=== PATIENT | female | born 1970 | race Caucasian/White ===

== ENCOUNTER 2018-02-01 11:10 | Emergency (ER) | payer BC ==
--- OUTSIDE RECORDS SUMMARY | 2018-02-01 11:24 | XMS REPORT | Clinical Summary ---
:1970 Author Organization [facility] Address [address] [place] [address] Care Team Providers Name Role Phone Shanti De Anda MD Primary Care Provider Allergies Active Allergy Reactions Severity Noted Date Comments Hydromorphone Itching Morphine Itching Sulfa (Sulfonamide Antibiotics) Itching 04/08/2013 Sulfamethoxazole-Trimethoprim Itching Medications Medication Sig Dispensed Refills Start Date End Date Status citalopram (CeleXA) 20 0 05/20/2013 Active MG tablet ARIPiprazole (ABILIFY) 0 12/20/2015 Active 5 MG tablet venlafaxine XR 0 12/20/2015 Active (EFFEXOR-XR) 75 MG 24 hr capsule clonAZEPAM (KlonoPIN) 0 12/20/2015 Active 0.5 MG tablet gabapentin (NEURONTIN) TAKE ONE (1) 0 02/08/2016 Active 300 mg capsule CAPSULE(S) BY MOUTH EVERY NIGHT BEFORE BEDTIME. gabapentin (NEURONTIN) 0 02/25/2016 Active 100 mg capsule tamoxifen (NOLVADEX) 20 0 02/24/2016 Active MG chemo tablet topiramate (TOPAMAX) 0 02/05/2016 Active 100 MG tablet traZODone (DESYREL) 100 0 12/20/2015 Active MG tablet traMADol (ULTRAM) 50 mg 0 02/05/2009 Active tablet esomeprazole (NexIUM) 0 11/20/2015 Active 20 MG capsule b complex vitamins 0 02/06/2016 Active capsule calcium citrate 250 mg 0 04/19/2012 Active calcium tablet multivitamin 0 02/06/2012 Active (THERAGRAN) tablet diclofenac potassium 0 02/05/2011 Active (ZIPSOR) 25 mg capsule cholecalciferol, 0 04/19/2012 Active vitamin D3, (VITAMIN D3) 5,000 unit tablet cyanocobalamin, vitamin 0 04/09/2012 Active B-12, (VITAMIN B-12) 2,500 mcg tablet, sublingual sennosides-docusate 0 11/06/2015 Active sodium (SENNA-S) 8.6-50 mg per tablet melatonin 5 mg tablet 0 05/20/2013 Active docusate sodium 0 11/06/2015 Active (COLACE) 100 MG capsule NUCYNTA ER 50 mg 12 hr TAKE ONE (1) 0 08/25/2016 Active tablet TABLET(S) BY MOUTH EVERY TWELVE HOURS NEEDED FOR PAIN. Active Problems Not on file Social History Tobacco Use Types Packs/Day Years Used Date Never Smoker Alcohol Use Drinks/Week oz/Week Comments No Sex Assigned at Date Recorded Not on file Job Start Date Occupation Industry Not on file Not on file Not on file Travel History Travel Start Travel End No recent travel history available. Last Filed Vital Signs Not on file Plan of Treatment Health Maintenance Due Date Last Done Comments CERVICAL CANCER SCREENING 1990 INFLUENZA VACCINE 09/05/2017 Results Not on fileafter 01/31/2017 Insurance Payer Benefit Plan / Group Subscriber ID Type Phone Address [facility] xxxxxxxxxxxx PPO Advance Directives Patient has advance care planning documents on file. For more information, please contact:[place] [address]
--- OUTSIDE RECORDS SUMMARY | 2018-02-01 11:25 | XMS REPORT | Clinical Summary ---
:[address] [facility] Address [address] [place] [address] Care Team Providers Name Role Phone Shanti De Anda Primary Care Provider Unavailable Allergies Active Allergy Reactions Severity Noted Date Comments Hydromorphone Itching Morphine Itching Sulfa (Sulfonamide Antibiotics) Itching 04/08/2013 Medications Medication Sig Dispensed Refills Start Date End Date Status citalopram (CELEXA) Take 20 mg by 0 Active 20 MG tablet mouth nightly. ARIPiprazole Take 5 mg by 0 Active (ABILIFY) 5 MG mouth daily. tablet multivitamin Take 1 0 Active capsule capsule by mouth daily. BIOTIN ORAL Take 1,000 0 Active Units by mouth daily. CALCIUM CARBONATE Take by mouth 0 Active (CALCIUM 500 ORAL) 2 (two) times daily. topiramate Take 200 mg 0 Active (TOPAMAX) 200 MG by mouth tablet daily. venlafaxine Take 75 mg by 0 Active (EFFEXOR-XR) 75 MG mouth daily. 24 hr capsule gabapentin Take 400 mg 0 Active (NEURONTIN) 400 MG by mouth capsule nightly. tamoxifen Take 20 mg by 0 Active (NOLVADEX) 20 MG mouth daily. tablet omeprazole Take 1 30 capsule 11 02/23/2017 02/23/2018 Active (PRILOSEC) 40 MG capsule (40 capsule mg total) by mouth daily. sucralfate Take 1 tablet 30 tablet 0 02/23/2017 02/23/2018 Active (CARAFATE) 1 gram (1 g total) tablet by mouth 4 (four) times daily Crush tablets. tapentadol (NUCYNTA Take 50 mg by 0 Active ER) 50 mg Tb12 mouth every 12 (twelve) hours. buPROPion Take 300 mg 0 02/22/2017 Discontinued (WELLBUTRIN XL) 300 by mouth MG 24 hr tablet daily. levomefolate Take by 0 02/22/2017 Discontinued calcium 7.5 mg Tab mouth. omeprazole Take 20 mg by 0 03/21/2017 Discontinued (PRILOSEC) 20 MG mouth daily. capsule diclofenac (ZIPSOR) Take 25 mg by 0 02/22/2017 Discontinued 25 mg capsule mouth 2 (two) times daily. CALCIUM CITRATE Take 5,000 0 02/22/2017 Discontinued ORAL Units by mouth 2 (two) times daily. polyethylene glycol Take 17 g by 0 03/21/2017 Discontinued (GLYCOLAX) 17 gram mouth daily. packet traMADol (ULTRAM) Take 50 mg by 0 03/21/2017 Discontinued 50 mg tablet mouth 2 (two) times daily as needed. lansoprazole Take 15 mg by 0 03/21/2017 Discontinued (PREVACID) 15 MG mouth daily. capsule Active Problems Not on file Encounters Date Type Specialty Care Team Description 12/14/2017 Anesthesia Event Gastroenterology Newton Brown MD 12/14/2017 Surgery Gastroenterology [facility], [facility] UPPER ENDOSCOPY [facility] 12/14/2017 Hospital Encounter Gastroenterology [facility], [facility] 12/04/2017 Hospital Encounter Pre-Admission Testing Resource, [facility] Phone 03/21/2017 Surgery Gastroenterology [facility], [facility] UPPER ENDOSCOPY [facility] 03/21/2017 Anesthesia Event Gastroenterology Arthur Skaggs MD 03/21/2017 Hospital Encounter Gastroenterology [facility], [facility] 03/17/2017 Hospital Encounter Pre-Admission Testing Resource, [facility] Phone 02/23/2017 Anesthesia Event Gastroenterology Mary Villalta MD 02/23/2017 Surgery Gastroenterology [facility], [facility] UPPER ENDOSCOPY [facility] 02/23/2017 Hospital Encounter Gastroenterology [facility], [facility] 02/22/2017 Hospital Encounter Pre-Admission Testing [facility] Resource, [employer] Preadmit Phone after 01/31/2017 Social History Tobacco Use Types Packs/Day Years Used Date Never Smoker Smokeless Tobacco: Never Used Alcohol Use Drinks/Week oz/Week Comments No Sex Assigned at Date Recorded Not on file Job Start Date Occupation Industry Not on file Not on file Not on file Travel History Travel Start Travel End No recent travel history available. 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 Pulse 50 12/14/2017 4:17 PM [employer] ARCH[employer] Temperature 36.2 C (97.1 F) 12/14/2017 4:17 PM V[employer]ICA ARCHITECT Respiratory Rate 16 12/14/2017 4:17 PM [employer]ICA ARCHITECT Oxygen Saturation 99% 12/14/2017 4:17 PM V[employer]ICA ARCHITECT Inhaled Oxygen Concentration - - Weight 66.4 kg (146 lb 4.8 oz) 12/14/2017 12:05 PM V[employer]ICA ARCHITECT Height 162.6 cm (5' 4") 12/14/2017 12:05 PM VERTICA ARCHITECT Body Mass Index 25.11 12/14/2017 12:05 PM V[employer]ICA ARCHITECT Plan of Treatment Not on file Procedures Procedure Name Priority Date/Time Associated Diagnosis Comments REPORT OF PROCEDURE - 12/14/2017 3:54 PM ENDOSCOPY URL [facility] UPPER ENDOSCOPY 12/14/2017 11:55 AM Chronic low back pain, [employer]CH[employer] unspecified back pain laterality, with sciatica presence unspecified Complications of bariatric procedures REPORT OF PROCEDURE - 03/21/2017 9:40 AM ENDOSCOPY URL [facility] UPPER ENDOSCOPY 03/21/2017 9:10 AM Other postprocedural [employer] complications and disorders of digestive system REPORT OF PROCEDURE - 02/23/2017 9:27 AM ENDOSCOPY URL [facility] UPPER ENDOSCOPY 02/23/2017 8:00 AM Complications of [employer] ARCHITECT bariatric procedures Overweight (BMI 25.0-29.9) after 01/31/2017 Results REPORT OF PROCEDURE - ENDOSCOPY URL (12/14/2017 3:54 PM VERTICA ARCHITECT) Narrative Performed At REPORT OF PROCEDURE - ENDOSCOPY URL (03/21/2017 9:40 AM VERTICA ARCHITECT) Narrative Performed At REPORT OF PROCEDURE - ENDOSCOPY URL (02/23/2017 9:27 AM [employer]ICA ARCHITECT) Narrative Performed At after 01/31/2017 Insurance Payer Benefit Plan / Subscriber ID Type Phone Address Group [employer]UE [employer]/BLUE [employer]BS PPO POS EPO xxxxxxxxxxxx PPO [phone] [address] [place] [address] [place] ([place]) [place] [address]
--- NOTE | 2018-02-01 12:22 | RAD REPORT ---
EXAM DESCRIPTION: CT - Stone Protocol - 02/01/2018 12:01 pm CLINICAL HISTORY: Abdominal pain. Right flank pain COMPARISON: 2012 TECHNIQUE: Computed axial tomography of the abdomen pelvis was obtained without oral or IV contrast. Lack of IV and oral contrast limits evaluation of solid organs, bowel, and vessels. Coronal reformat joseluis images were obtained and reviewed. All CT scans are performed using dose optimization technique as appropriate and may include automated exposure control or mA/KV adjustment according to patient size. FINDINGS: A 1 millimeter nonobstructing right renal calculus. Ureteral calculus is not noted. A blad jaja calculus is not seen. Hydronephrosis is not present. Postsurgical changes of a gastric bypass. Small hepatic cyst Spleen, pancreas and right adrenal gland appear grossly normal. Small left adrenal adenoma unchanged There is no evidence of diverticulitis. Moderate amount of stool is present within the colon IMPRESSION: 1 millimeter nonobstructing right renal calculus
[2018-02-01] MEDS ORDERED: KETOROLAC 30 MG/ML INJ ONE (12:40)
--- NOTE | 2018-02-01 12:41 | EDPHYS ---
Physician Documentation [facility] Name: Mary Jo Mcnally Age: 47 yrs Sex: Female : 1970 Arrival Date: 02/01/2018 Time: 11:13 Bed 25 Private MD: Shanti De Anda K ED Physician Yefri Thornton HPI: 02/01 12:37 This 47 yrs old Female presents to ER via Ambulatory with complaints of snw Possible Kidney Stone. 12:37 The patient presents with abdominal pain right lower quadrant. Onset: The snw symptoms/episode began/occurred gradually, today, then sudden onset of more severe pain at 0900 this am. The symptoms do not radiate. Associated signs and symptoms: none. Associated signs and symptoms: Pertinent negatives: nausea and vomiting, blood in stools, fever. The symptoms are described as sharp, stabbing. Severity of pain: At its worst the pain was moderate severe. The patient has not experienced similar symptoms in the past, but family has similar symptoms, spouse. It is unknown whether or not the patient has recently seen a physician. 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 aj Historical: - Allergies: 11:45 Morphine; aj 11:45 Sulfa (Sulfonamide Antibiotics); aj - Home Meds: 11:45 Abilify 5 mg Oral tab 1 tab once daily [Active]; Celexa 20 mg Oral tab 1 tab nightly aj [Active]; Effexor Oral 75 mg daily [Active]; gabapentin 400 mg oral cap daily [Active]; Nucynta ER 50 mg oral Tb12 1 tab every 12 hours [Active]; TIMOXIFEN 20 MG nightly [Active]; Prilosec 30 mg Oral cpDR 1 cap 2 times per day [Active]; Zipsor 25 mg oral cap 1 cap twice a day [Active]; Senokot S 3 TABS Oral daily [Active]; Colace 100 mg Oral cap every 6 hours [Active]; - PMHx: 11:45 CANCER - BREAST; constipation; Depression; GERD; aj - PSHx: 11:45 Gastric Bypass; BILTERAL BREAST REMOVAL WITH RECONSTRUCTION; BACK FUSION; aj Cholecystectomy; - Immunization history:: Adult Immunizations up to date. - Social history:: Smoking status: Patient/guardian denies using tobacco. - Ebola Screening: : Patient negative for fever greater than or equal to 101.5 degrees Fahrenheit, and additional compatible Ebola Virus Disease symptoms Patient denies exposure to infectious person Patient denies travel to an Ebola-affected area in the 21 days before illness onset No symptoms or risks identified at this time. ROS: 12:36 Constitutional: Negative for fever, chills, and weight loss, Eyes: Negative for injury, snw pain, redness, and discharge, ENT: Negative for injury, pain, and discharge, Neck: Negative for injury, pain, and swelling, Cardiovascular: Negative for chest pain, palpitations, and edema, Respiratory: Negative for shortness of breath, cough, wheezing, and pleuritic chest pain, Back: Negative for injury and pain, : Negative for injury, bleeding, discharge, and swelling, MS/Extremity: Negative for injury and deformity, Skin: Negative for injury, rash, and discoloration, Neuro: Negative for headache, weakness, numbness, tingling, and seizure, Psych: Negative for depression, anxiety, suicide ideation, homicidal ideation, and hallucinations. 12:36 Abdomen/GI: Positive for abdominal pain, of the right lower quadrant. Exam: 12:26 Constitutional: This is a well developed, well nourished patient who is awake, alert, snw and in no acute distress. Head/Face: Normocephalic, atraumatic. Eyes: Pupils equal round and reactive to light, extra-ocular motions intact. Lids and lashes normal. Conjunctiva and sclera are non-icteric and not injected. Cornea within normal limits. Periorbital areas with no swelling, redness, or edema. ENT: Nares patent. No nasal discharge, no septal abnormalities noted. Tympanic membranes are normal and external auditory canals are clear. Oropharynx with no redness, swelling, or masses, exudates, or evidence of obstruction, uvula midline. Mucous membranes moist. Neck: Trachea midline, no thyromegaly or masses palpated, and no cervical lymphadenopathy. Supple, full range of motion without nuchal rigidity, or vertebral point tenderness. No Meningismus. Chest/axilla: Normal chest wall appearance and motion. Nontender with no deformity. No lesions are appreciated. Cardiovascular: Regular rate and rhythm with a normal S1 and S2. No gallops, murmurs, or rubs. Normal PMI, no JVD. No pulse deficits. Respiratory: Lungs have equal breath sounds bilaterally, clear to auscultation and percussion. No rales, rhonchi or wheezes noted. No increased work of breathing, no retractions or nasal flaring. Abdomen/GI: Soft, non-tender, with normal bowel sounds. No distension or tympany. No guarding or rebound. No evidence of tenderness throughout. Back: No spinal tenderness. No costovertebral tenderness. Full range of motion. Skin: Warm, dry with normal turgor. Normal color with no rashes, no lesions, and no evidence of cellulitis. MS/ Extremity: Pulses equal, no cyanosis. Neurovascular intact. Full, normal range of motion. Neuro: Awake and alert, GCS 15, oriented to person, place, time, and situation. Cranial nerves II-XII grossly intact. Motor strength 5/5 in all extremities. Sensory grossly intact. Cerebellar exam normal. Normal gait. Psych: Awake, alert, with orientation to person, place and time. Behavior, mood, and affect are within normal limits. Vital Signs: 11:45 BP 115 / 81; Pulse 78; Resp 19; Temp 97.8; Pulse Ox 100% on R/A; Weight 63.96 kg; aj Height 5 ft. 4 in. (162.56 cm); 11:45 Body Mass Index 24.20 (63.96 kg, 162.56 cm) aj MDM: 12:34 Patient medically screened. [facility] 12:40 Data reviewed: vital signs, nurses notes. Data interpreted: Pulse oximetry: on room air snw is 100 %. Interpretation: normal. Special discussion: Based on the patient's Hx, exam, and Dx evaluation, there is no indication for emergent surgery or inpatient Tx. It is understood by the patient/guardian that if the Sx's persist or worsen they need to return immediately for re-evaluation. Based on the history and exam findings, there is no indication for further emergent testing or inpatient evaluation. I discussed with the patient/guardian the need to see the primary care provider for further evaluation of the symptoms. 02/01 12:39 Order name: Urine Dipstick--Ancillary (enter results) 02/01 11:47 Order name: CT Stone Protocol; Complete Time: 12:25 Administered Medications: 12:35 Drug: TORadol 60 mg Route: IM; Site: right gluteus; ss 12:51 Follow up: Response: No adverse reaction; Medication administered at discharge. ss Disposition: 02/01/18 12:39 Discharged to Home. Impression: Ureteral stone, Lower abdominal pain, unspecified. - Condition is Stable. - Discharge Instructions: Abdominal Pain, Adult, Flank Pain, Adult, Kidney Stones, Dietary Guidelines to Help Prevent Kidney Stones. - Prescriptions for Tylenol- Codeine #3 300-30 mg Oral Tablet - take 2 tablets by ORAL route every 6 hours As needed; 18 tablet. - Medication Reconciliation Form, Thank You Letter, Antibiotic Education, Prescription Opioid Use form. - Follow up: Private Physician; When: 2 - 3 days; Reason: Recheck today's complaints, Continuance of care, Re-evaluation by your physician. Follow up: Emergency Department; When: As needed; Reason: Worsening of condition. Addendum: 02/05/2018 10:59 Co-signature as Attending Physician, Yefri Thornton MD I agree with the assessment and c morris plan of care. Signatures: Dispatcher [employer] Jenifer Silva, Yefri Rocha RN, MD MD cha Therrien, Shelly, MOLDED GOODS INSPECTOR TRIMMER-C MOLDED GOODS INSPECTOR TRIMMER-Csnw Roseanne Ruth RN RN ss Corrections: (The following items were deleted from the chart) 02/01 12:51 12:39 02/01/2018 12:39 Discharged to Home. Impression: Ureteral stone; Lower abdominal ss pain, unspecified. Condition is Stable. Forms are Medication Reconciliation Form, Thank You Letter, Antibiotic Education, Prescription Opioid Use. Follow up: Private Physician; When: 2 - 3 days; Reason: Recheck today's complaints, Continuance of care, Re-evaluation by your physician. Follow up: Emergency Department; When: As needed; Reason: Worsening of condition. snw
--- NOTE | 2018-02-01 12:41 | ER ---
Nurse's Notes [facility] Name: Mary Jo Mcnally Age: 47 yrs Sex: Female : 1970 Arrival Date: 02/01/2018 Time: 11:13 Bed 25 Private MD: Shanti De Anda K Diagnosis: Ureteral stone;Lower abdominal pain, unspecified Presentation: 02/01 11:42 Presenting complaint: Patient states: Right flank pain that started this AM at 0900. aj Denies blood in urine. Transition of care: patient was not received from another setting of care. Onset of symptoms was February 01, 2018. Risk Assessment: Do you want to hurt yourself or someone else? Patient reports no desire to harm self or others. Initial Sepsis Screen: Does the patient meet any 2 criteria? No. Patient's initial sepsis screen is negative. Does the patient have a suspected source of infection? No. Patient's initial sepsis screen is negative. Care prior to arrival: None. 11:42 Method Of Arrival: Ambulatory 11:42 Acuity: CHRIST 3 aj Triage Assessment: 11:45 General: Appears in no apparent distress. uncomfortable, Behavior is calm, cooperative, aj appropriate for age. Pain: Complains of pain in posterior aspect of right lateral abdomen and anterior aspect of right lateral abdomen. Neuro: Level of Consciousness is awake, alert, obeys commands, Oriented to person, place, time, situation, Appropriate for age. Respiratory: Airway is patent Respiratory effort is even, unlabored, Respiratory pattern is regular, symmetrical. GI: Abdomen is flat, non-distended. : Reports pain in right flank(s). Derm: Skin is intact, is healthy with good turgor, Skin is pink, warm \T\ dry. normal. 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 aj Historical: - Allergies: 11:45 Morphine; aj 11:45 Sulfa (Sulfonamide Antibiotics); aj - Home Meds: 11:45 Abilify 5 mg Oral tab 1 tab once daily [Active]; Celexa 20 mg Oral tab 1 tab nightly aj [Active]; Effexor Oral 75 mg daily [Active]; gabapentin 400 mg oral cap daily [Active]; Nucynta ER 50 mg oral Tb12 1 tab every 12 hours [Active]; TIMOXIFEN 20 MG nightly [Active]; Prilosec 30 mg Oral cpDR 1 cap 2 times per day [Active]; Zipsor 25 mg oral cap 1 cap twice a day [Active]; Senokot S 3 TABS Oral daily [Active]; Colace 100 mg Oral cap every 6 hours [Active]; - PMHx: 11:45 CANCER - BREAST; constipation; Depression; GERD; aj - PSHx: 11:45 Gastric Bypass; BILTERAL BREAST REMOVAL WITH RECONSTRUCTION; BACK FUSION; aj Cholecystectomy; - Immunization history:: Adult Immunizations up to date. - Social history:: Smoking status: Patient/guardian denies using tobacco. - Ebola Screening: : Patient negative for fever greater than or equal to 101.5 degrees Fahrenheit, and additional compatible Ebola Virus Disease symptoms Patient denies exposure to infectious person Patient denies travel to an Ebola-affected area in the 21 days before illness onset No symptoms or risks identified at this time. Screenin:20 Abuse screen: Denies threats or abuse. Denies injuries from another. Nutritional ss screening: No deficits noted. Tuberculosis screening: Never had TB. Fall Risk None identified. Assessment: 12:20 General: Appears uncomfortable, Behavior is calm, cooperative. Pain: Complains of pain ss in right lower quadrant and anterior aspect of right lateral abdomen and posterior aspect of right lateral abdomen Pain currently is 7 out of 10 on a pain scale. Quality of pain is described as aching, sharp, Is continuous. Neuro: Level of Consciousness is awake, alert, obeys commands, Oriented to person, place, time, situation. Cardiovascular: Capillary refill < 3 seconds is brisk in bilateral fingers Patient's skin is warm and dry. Respiratory: Respiratory effort is unlabored. GI: Bowel sounds present X 4 quads. Abd is soft and non tender X 4 quads. EENT: Nares are clear Oral mucosa is moist. Throat is clear. Derm: Skin is intact, is healthy with good turgor, Skin is dry, Skin is pink, warm \T\ dry. normal. Musculoskeletal: Circulation, motion, and sensation intact. Range of motion: intact in all extremities. Vital Signs: 11:45 BP 115 / 81; Pulse 78; Resp 19; Temp 97.8; Pulse Ox 100% on R/A; Weight 63.96 kg; aj Height 5 ft. 4 in. (162.56 cm); 11:45 Body Mass Index 24.20 (63.96 kg, 162.56 cm) ED Course: 11:13 Patient arrived in ED. sb2 11:13 Shanti De Anda MD is Private Physician. sb2 11:43 Triage completed. aj 11:45 Arm band placed on right wrist. Patient placed in waiting room, Patient notified of aj wait time. CT ordered. 12:00 CT completed. Patient tolerated procedure well. Patient moved to CT via wheelchair. Patient taken to [facility], Patient moved back from CT. 12:00 CT Stone Protocol In Process Unspecified. EDMS 12:17 Francie Wood FNP-C is PHCP. snw 12:18 Yefri Thornton MD is Attending Physician. snw 12:20 Patient has correct armband on for positive identification. Bed in low position. Call ss light in reach. 12:38 Roseanne Ruth, RN is Primary Nurse. ss 12:39 Urine Dipstick--Ancillary (enter results) Sent. jp3 12:50 No provider procedures requiring assistance completed. Patient did not have IV access ss during this emergency room visit. Administered Medications: 12:35 Drug: TORadol 60 mg Route: IM; Site: right gluteus; ss 12:51 Follow up: Response: No adverse reaction; Medication administered at discharge. ss Outcome: 12:39 Discharge ordered by . snw 12:50 Discharged to home ambulatory. ss 12:50 Condition: good 12:50 Discharge instructions given to patient, Instructed on discharge instructions, follow up and referral plans. medication usage, Demonstrated understanding of instructions, follow-up care, medications, Prescriptions given X 1. 12:51 Patient left the ED. ss Signatures: Dispatcher [employer] EDMS Jenifer Reese, RN RN Francie Johnson FNP-C SWIMMING COACH-Csnw Carisa Duval Roseanne Ruth, RN RN Alisha Castro sb2 Chilo Fong jp3
[2018-02-01 14:00] LABS: Urine Blood NEGATIVE (NEG); Urine Glucose NEGATIVE (NEG); Urine Protein NEGATIVE (NEG)
== END 2018-02-01 12:51 | disposition home or self-care (01) ==
LOC: ER 11:10
DX: N20.0 Calculus of kidney (principal); F32.9 Major depressive disorder, single episode, unspecified; K21.9 Gastro-esophageal reflux disease without esophagitis; Z79.899 Other long term (current) drug therapy; Z98.84 Bariatric surgery status; Z85.3 Personal history of malignant neoplasm of breast
CPT/HCPCS: 74176; 76377; 81003; 96372; 99284

== ENCOUNTER 2019-03-15 15:38 | Emergency (ER) | payer BC ==
--- OUTSIDE RECORDS SUMMARY | 2019-03-15 15:40 | XMS REPORT | Summary of Care ---
:1970 Author Organization [facility] [place] [address] Care Team Providers Name Role Phone Shanti De Anda MD Primary Care Provider Reason for Visit Reason Comments Nutrition Counseling Consult, Test & Treat (Routine) Status Reason Specialty Diagnoses / Referred By Referred To Procedures Contact Contact Authorization Not Consult, Gastroenterology Diagnoses Gastric bypass status for obesity Abnormal weight gain Overweight (BMI 25.0-29.9) Roberto Nation, Needed Test, and Procedures CO MED NUTR THER, 1ST, INDIV, EA 15 MIN M., MD Nielson, RD Treat [address] [facility] [address] [place] [phone] Phone: Fax: Encounter Details Date Type Department Care Team Description 09/11/2018 Office Visit [facility] Nisreen Townsend, Nutrition Counseling Gastroenterology RD [address] [facility] 8th Floor, [address] [place] [phone] Allergies Active Allergy Reactions Severity Noted Date Comments Opioid Analgesics High 02/12/2017 Sulfa Antibiotics Itching High 02/12/2017 documented as of this encounter (statuses as of 09/12/2018) Medications Medication Sig Dispensed Refills Start Date End Date Status gabapentin (NEURONTIN) Take 400 mg by 0 01/19/2017 Active 400 MG capsule mouth at bedtime. topiramate (TOPAMAX) 200 mg at 0 Active 200 MG tablet bedtime. aripiprazole (ABILIFY) 5 mg daily. 0 Active 5 MG tablet citalopram (CELEXA) 20 Take 20 mg by 0 Active MG tablet mouth daily. venlafaxine (EFFEXOR Take 75 mg by 0 Active XR) 75 MG XR capsule mouth daily. Tapentadol HCl 50 mg two times 0 Active (NUCYNTA) 50 MG TABS daily. metaxalone (SKELAXIN) Take 800 mg by 0 Active 800 MG tablet mouth daily. tamoxifen (NOLVADEX) 20 Take 20 mg by 0 Active MG tablet mouth daily. trazodone (DESYREL) 100 Take 100 mg by 0 Active MG tablet mouth at bedtime. Diclofenac Potassium Take 25 mg by 0 Active (ZIPSOR) 25 MG CAPS mouth two times daily. B Complex-C (SUPER B 0 Active COMPLEX OR) Multiple Vitamin 0 Active (M.V.I. ADULT IV) Iron, Ferrous 75 mg at bedtime. 0 Active Gluconate, 256 (28 FE) MG TABS Magnesium 100 MG CAPS 400 mg at 0 Active bedtime. Calcium Citrate-Vitamin 0 Active D (CALCIUM + D OR) Lactobacillus-Inulin 0 Active (PROBIOTIC DIGESTIVE SUPPORT OR) docusate sodium Take 100 mg by 0 Active (COLACE) 100 MG capsule mouth daily as needed for Constipation. Sennosides (SENOKOT OR) 3 tablets two 0 Active times daily. Loratadine (CLARITIN) Take 10 mg by 0 Active 10 MG CAPS mouth at bedtime. Melatonin 3 MG CAPS Take 10 mg by 0 Active mouth nightly as needed. Biotin 99367 MCG TABS Take 10,000 mcg 0 Active by mouth every morning. Calcium Citrate-Vitamin Take 500 mg by 0 Active D 500-400 MG-UNIT CHEW mouth every morning. Probiotic Product two times daily. 0 Active (PROBIOTIC DAILY OR) Cholecalciferol 0 Active (VITAMIN D3) 3000 UNITS TABS GLYCINE OR 0 Active L-METHIONINE OR 0 Active Tapentadol HCl (NUCYNTA Take 100 mg by 0 10/26/2017 Active ER OR) mouth two times daily. baclofen (LIORESAL) 10 Take 5 mg by 0 10/26/2017 Active MG tablet mouth 3 times daily. FLECTOR 1.3 % PTCH 0 10/26/2017 Active Multiple Vitamin Take by mouth 0 Active (MULTI-VITAMIN DAILY daily. OR) omeprazole (PRILOSEC) Take 1 Cap by 60 Cap 3 05/15/2018 Active 40 MG capsule mouth two times daily. Take at least 30 minutes before breakfast and dinner. Open Capsules. Can take with tsp applesauce documented as of this encounter (statuses as of 09/12/2018) Active Problems No known active problemsdocumented as of this encounter (statuses as of 2018) Social History Tobacco Use Types Packs/Day Years Used Date Never Smoker Smokeless Tobacco: Never Used Alcohol Use Drinks/Week oz/Week Comments No Sex Assigned at Date Recorded Not on file Job Start Date Occupation Industry Not on file Not on file Not on file Travel History Travel Start Travel End No recent travel history available. documented as of this encounter Last Filed Vital Signs Not on filedocumented in this encounter Progress Notes Nisreen Townsend, RD - 09/11/2018 11:00 AM CDT Nutrition Initial Data: This is a 47 year old Female Clinical Data: Diagnosis overweight, pre-bariatric nutrition, h/o gasric bypass Current Weight and Height: Height is 5ft.4 Weight is ->156.4 lbs. Weight is Current. BMI 26.8 ( overweight) Energy 950-1000 calories per day Weight Change ~9 lbs. weight gain X 6 mths Assessment: Pt reports recent weight gain in the past one year. She had stopped feeling satiated 4-5 yrs post-bariatric surgery. She reports feeling a bit more satiated after most recent procedure 2 mths ago. Pt reports struggles with dietary compliance. A review of intake indicated 3 small portion, high protein meals from 8am to 5pm. Further discussion indicated uncontrolled late night snacking from 7:30p- past midnight on high carb snacks. She admits struggles with insomnia and non-compliance with sleep aids. The insomnia episodes foster increased snacking. Pt engages in very mild walks due to back injury. Intervention: Instructed pt. on healthful low fat meal planning, portion controlled meals Discussed micronutrient needs post-gastric bypass Discussed meal planning strategies to promote weight loss Reviewed importance of structured meal times Sample meal plan provided Plan: ? Pt to continue high protein meal plan ? Scheduled meal times as discussed ? 5-6 small meals/day ? Add small quantity non-starchy veggies with meals ? Use meal planning guides provided ? Monitor intake on food log fran and bring to follow up ? Follow up with Sleep Specialist about sleep aid concern ? Continue brisk walk as tolerable ? Follow up in 6 weeksElectronically signed by Nisreen Townsend RD at 2018 10:56 AM CDTdocumented in this encounter Plan of Treatment Date Type Specialty Care Team Description 09/20/2018 Appointment Gastroenterology Roberto Nation MD [address] [facility] [address] [place] [address] Name Type Priority Associated Diagnoses Order Schedule CO MED NUTR THER, CO Charge Routine H/O gastric bypass Ordered: 09/12/2018 1ST, DARYN, EA 15 Pre-bariatric surgery MIN nutrition evaluation Overweight (BMI 25.0-29.9) Health Maintenance Due Date Last Done Comments MAMMOGRAM ANNUAL 1970 TETANUS SHOT (ADULT) 1984 BMI FOLLOW UP PLAN 11/06/1987 HIV SCREENING 11/06/1987 CERVICAL CANCER SCREENING 3 YEAR FOLLOW UP 1990 FLU VACCINE > 6 MONTHS 09/05/2018 documented as of this encounter Results Not on filedocumented in this encounter Visit Diagnoses Diagnosis H/O gastric bypass - Primary Bariatric surgery status Pre-bariatric surgery nutrition evaluation Overweight (BMI 25.0-29.9) Overweight documented in this encounter Insurance Payer Benefit Plan / Subscriber ID Effective Dates Phone Address Type Group [facility] PPO/EPO - BCBS xxxxxxxxxxxx 2016-Present [address] [place] [address] documented as of this encounter
--- OUTSIDE RECORDS SUMMARY | 2019-03-15 15:40 | XMS REPORT | Summary of Care ---
:1970 Author Name ORIANA AGARWAL M.D. Address Unavailable Unavailable , Care Team Providers Name Role Phone ORIANA AGARWAL M.D. Unavailable Unavailable BIJAL GILLIAM MD Unavailable Unavailable Functional Status Name Dates Details Functional status health issues are not documented Status: Name Dates Details Cognitive status health issues are not documented Status: Problems Name Dates Details Scoliosis (737.30, M41.9) Status: Active DDD (degenerative disc disease), lumbar (722.52, M51.36) Status: Active Lumbar post-laminectomy syndrome (722.83, M96.1) Status: Active Medications Name Dates Details Gabapentin CAPS Refills: 0 Active Zipsor CAPS Refills: 0 Active Abilify TABS Refills: 0 Active CeleXA TABS Refills: 0 Active Effexor TABS Refills: 0 Active TraZODone HCl TABS Refills: 0 Active Topamax 200 MG Oral Tablet Refills: 0 Active Tamoxifen Citrate 20 MG Oral Tablet Refills: 0 Active PriLOSEC CPDR Refills: 0 Active Senokot S TABS Refills: 0 Active Claritin TABS Refills: 0 Active Melatonin TABS Refills: 0 Active Vitamin D3 TABS Refills: 0 Active Iron TABS Refills: 0 Active Biotin CAPS Refills: 0 Active Docusate Sodium 100 MG Oral Capsule Refills: 0 Active [place] 3 CAPS Refills: 0 Active Calcium Citrate CAPS Refills: 0 Active Probiotic CAPS Refills: 0 Active Allergies and Adverse Reactions Name Dates Details Dilaudid (Allergy) Status: Active morphine (Allergy) Status: Active Sulfa Drugs (Allergy) Status: Active Procedures Procedure Dates Details MRI Spine lumbar wo contrast 77702 Date: 04-Mar-2018 CT Spine lumbar wo contrast 24057 Date: 04-Mar-2018 History of Hysterectomy Completed History of Gastric bypass surgery Completed History of Cholecystectomy Completed History of Bunionectomy Completed History of Hip surgery Completed History of Lower back surgery Completed History of Mastectomy Completed History of Breast reconstruction Completed History of Bladder surgery Completed Immunization Name Dates Details Immunizations not documented Family History Name Dates Details Family history of cardiac disorder (V17.49, Z82.49) Comments: Family History Status: Active Family history of diabetes mellitus (V18.0, Z83.3) Comments: Family History Status: Active Social History Name Dates Details - Status: Name Dates Details Never smoker Vital Signs Date Test Result Details [id number] Height 64 in Status: Weight 141 lb Status: Body Mass Index Calculated 24.2 kg/m2 Status: Body Surface Area Calculated 1.69 m2 Status: Results Date Description Value Details Results not documented Plan of Care Name Dates Details Planned Observations Planned Goals not documented Interventions Provided Labs/Procedures/ImagingCT Spine lumbar wo contrast [id number]; To Be Done: 04 Mar 2018MRI Spine lumbar wo contrast 59324; To Be Done: 04 Mar 2018[O] Xray SPINE LUMBOSACRAL 2 OR 3 VIEWS; Done: 04 Mar 2018PlanScoliosis, degenerative disc disease, post laminectomy. César comes to us with a long history of back pain. She denies any leg symptomatology. She has pain with sitting, standing, and walking. She appears to be quite functional but she Is taking a significant amount of Narcotics in order to manage herpain. She has tried a variety pain management procedures that have not been helpful. She did have the procedure done by Dr. Correa In 2014 which she reports was quite effective. She did have another MRI from September 2016 which I am assuming it was the point where she was symptomatic. I think she needs a workup at this point with an MRI. Dr. Correa used an Interspinous clamp to perform a fusion which has had a very significant nonunion rate. We will get a CT of her Lumbar Spine to better assess with the solidity of the fusion that was performed as well. Instructions Name Dates Details Instructions not documented Encounters Appointment; MAYANK GOLDSMITH M.D. On: 12-Jul-2016 13:00 Encounter Diagnosis: Problem not documented Appointment; MAYANK GOLDSMITH M.D. On: 16-Aug-2016 15:15 Encounter Diagnosis: Problem not documented Appointment; ORIANA AGARWAL M.D. On: 04-Mar-2018 15:30 Encounter Diagnosis: Problem not documented
[2019-03-15] MEDS ORDERED: DIAZEPAM 10 MG/2 ML INJ SYRINGE ONE (16:12)
[2019-03-15] MEDS ORDERED: KETOROLAC 30 MG/ML INJ ONE (16:12)
[2019-03-15] MEDS ORDERED: FENTANYL CITR 100 MCG/2 ML ONE (16:47)
--- NOTE | 2019-03-15 17:01 | ER ---
Nurse's Notes [facility] Name: Mary Jo Mcnally Age: 48 yrs Sex: Female : 1970 Arrival Date: 03/15/2019 Time: 15:40 Bed 5 Private MD: Shanti De Anda K Diagnosis: Low back pain-chronic;Radiculopathy, lumbosacral region Presentation: 03/15 15:40 Presenting complaint: Patient states: "I am due to have back surgery in April, I had hb radiofrequency ablation on my low back 2 days ago, today after I cleaned the house, I had severe low back pain and could not get up.". Transition of care: patient was not received from another setting of care. Onset of symptoms was March 15, 2019. Risk Assessment: Do you want to hurt yourself or someone else? Patient reports no desire to harm self or others. Care prior to arrival: None. 15:40 Method Of Arrival: Ambulatory hb 15:40 Acuity: CHRIST 3 hb 17:11 Initial Sepsis Screen: Does the patient meet any 2 criteria? No. Patient's initial aj1 sepsis screen is negative. Does the patient have a suspected source of infection? No. Patient's initial sepsis screen is negative. Historical: - Allergies: 15:45 Morphine; hb 15:45 Sulfa (Sulfonamide Antibiotics); hb 15:45 Dilaudid; hb - Home Meds: 15:45 Abilify 5 mg Oral tab 1 tab once daily [Active]; Celexa 20 mg Oral tab 1 tab nightly hb [Active]; Colace 100 mg Oral cap every 6 hours [Active]; Effexor Oral 75 mg nightly [Active]; gabapentin 400 mg Oral cap daily [Active]; Nucynta ER 50 mg Oral Tb12 1 tab every 12 hours [Active]; Prilosec 30 mg Oral cpDR 1 cap 2 times per day [Active]; Senokot S 3 TABS Oral daily [Active]; TIMOXIFEN 20 MG nightly [Active]; Zipsor 25 mg Oral cap 1 cap twice a day [Active]; trazodone 100 mg Oral tab [Active]; Belbuca buccal buccal [Active]; baclofen 10 mg Oral tab twice a day [Active]; - PMHx: 15:45 CANCER - BREAST; constipation; Depression; GERD; hb - PSHx: 15:45 Gastric Bypass; BILTERAL BREAST REMOVAL WITH RECONSTRUCTION; BACK FUSION; hb Cholecystectomy; - Immunization history:: Adult Immunizations up to date. - Coronavirus screen:: The patient has NOT traveled to [place], [place], or [place] in the past 14 days. The patient has NOT had contact with known/suspected case of Coronavirus? Proceed with normal triage procedures. - Social history:: Smoking status: Patient denies any tobacco usage or history of. - Ebola Screening: : No symptoms or risks identified at this time. Screenin:49 Abuse screen: Denies threats or abuse. Denies injuries from another. Nutritional aj1 screening: No deficits noted. Tuberculosis screening: No symptoms or risk factors identified. 17:12 Fall Risk None identified. aj1 Assessment: 15:49 General: Appears in no apparent distress. uncomfortable, Behavior is calm, cooperative, aj1 appropriate for age. Pain: Complains of pain in low back area. Neuro: Level of Consciousness is awake, alert, obeys commands, Oriented to person, place, time, situation. Cardiovascular: Patient's skin is warm and dry. Respiratory: Airway is patent Respiratory effort is even, unlabored, Respiratory pattern is regular, symmetrical. GI: No signs and/or symptoms were reported involving the gastrointestinal system. : No signs and/or symptoms were reported regarding the genitourinary system. EENT: No signs and/or symptoms were reported regarding the EENT system. Derm: No signs and/or symptoms reported regarding the dermatologic system. Skin is pink, warm \\T\\ dry. normal. Musculoskeletal: Circulation, motion, and sensation intact. Range of motion: intact in all extremities. 16:51 Reassessment: Patient appears in no apparent distress at this time. No changes from aj1 previously documented assessment. Patient and/or family updated on plan of care and expected duration. Pain level reassessed. Patient is alert, oriented x 3, equal unlabored respirations, skin warm/dry/pink. Vital Signs: 15:45 BP 116 / 66; Pulse 76; Resp 16; Temp 98.2; Pulse Ox 98% on R/A; Weight 70.31 kg; Height hb 5 ft. 4 in. (162.56 cm); Pain 10/10; 15:45 Body Mass Index 26.61 (70.31 kg, 162.56 cm) hb ED Course: 15:40 Patient arrived in ED. as 15:41 Shanti De Anda MD is Private Physician. as 15:42 Triage completed. hb 15:45 Arm band placed on. hb 15:47 Yefri Rondon PA is PHCP. cp 15:47 Germain Hoyt MD is Attending Physician. cp 15:49 Melinda Portillo RN is Primary Nurse. aj1 15:49 Patient has correct armband on for positive identification. Bed in low position. Call aj1 light in reach. Side rails up X 1. 15:49 No provider procedures requiring assistance completed. aj1 16:08 Pillow given. Verbal reassurance given. Pulse ox on. NIBP on. jp3 16:08 Urine collected: clean catch specimen, clear, froy colored. jp3 17:11 Patient did not have IV access during this emergency room visit. aj1 Administered Medications: 16:10 Drug: TORadol 60 mg Route: IM; Site: right gluteus; bp 17:10 Follow up: Response: No adverse reaction aj1 16:10 Drug: Diazepam 5 mg Route: IM; Site: right gluteus; bp 17:10 Follow up: Response: No adverse reaction aj1 16:45 Drug: fentaNYL (PF) 25 mcg Route: IM; Site: right deltoid; aj1 17:11 Follow up: Response: No adverse reaction; Pain is decreased; RASS: Alert and Calm (0) aj1 Point of Care Testing: Urine : 16:08 hCG Reading: Negative; Control Reading: Positive; jp3 Outcome: 17:00 Discharge ordered by MD. cp 17:12 Discharged to home ambulatory. aj1 17:12 Condition: good 17:12 Discharge instructions given to patient, Instructed on discharge instructions, follow up and referral plans. medication usage, Demonstrated understanding of instructions, follow-up care, medications, Prescriptions given X 1. 17:13 Patient left the ED. aj1 Signatures: Melinda Portillo, RN RN aj1 Georgina Wiggins Corey, PA PA cp Valorie Khalil RN RN hb Peltier, Brian, RN RN bp Pisarski, Jacob jp3 Corrections: (The following items were deleted from the chart) 15:45 15:40 Acuity: CHRIST 4 hb hb
--- NOTE | 2019-03-15 17:02 | EDPHYS ---
Physician Documentation [facility] Name: Mary Jo Mcnally Age: 48 yrs Sex: Female : 1970 Arrival Date: 03/15/2019 Time: 15:40 Bed 5 Private MD: Shanti De Anda K ED Physician Germain Hoyt HPI: 03/15 15:53 This 48 yrs old Female presents to ER via Ambulatory with complaints of Back cp Pain. 15:53 The patient presents with pain that is chronic. The symptoms are located in the low cp back. Onset: The symptoms/episode began/occurred and became worse today. The pain radiates to the left thigh and right thigh. Associated signs and symptoms: Pertinent negatives: abdominal pain, constipation, dysuria, fever, incontinence, numbness, tingling, weakness. The problem was sustained Patient reports she is scheduled for upcoming back surgery and had radiofrequency ablation procedure performed by pain management physician 2 days ago. 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 Historical: - Allergies: 15:45 Morphine; hb 15:45 Sulfa (Sulfonamide Antibiotics); hb 15:45 Dilaudid; hb - Home Meds: 15:45 Abilify 5 mg Oral tab 1 tab once daily [Active]; Celexa 20 mg Oral tab 1 tab nightly hb [Active]; Colace 100 mg Oral cap every 6 hours [Active]; Effexor Oral 75 mg nightly [Active]; gabapentin 400 mg Oral cap daily [Active]; Nucynta ER 50 mg Oral Tb12 1 tab every 12 hours [Active]; Prilosec 30 mg Oral cpDR 1 cap 2 times per day [Active]; Senokot S 3 TABS Oral daily [Active]; TIMOXIFEN 20 MG nightly [Active]; Zipsor 25 mg Oral cap 1 cap twice a day [Active]; trazodone 100 mg Oral tab [Active]; Belbuca buccal buccal [Active]; baclofen 10 mg Oral tab twice a day [Active]; - PMHx: 15:45 CANCER - BREAST; constipation; Depression; GERD; hb - PSHx: 15:45 Gastric Bypass; BILTERAL BREAST REMOVAL WITH RECONSTRUCTION; BACK FUSION; hb Cholecystectomy; - Immunization history:: Adult Immunizations up to date. - Coronavirus screen:: The patient has NOT traveled to [place], [place], or [place] in the past 14 days. The patient has NOT had contact with known/suspected case of Coronavirus? Proceed with normal triage procedures. - Social history:: Smoking status: Patient denies any tobacco usage or history of. - Ebola Screening: : No symptoms or risks identified at this time. ROS: 16:00 Constitutional: Negative for body aches, chills, fever, poor PO intake. cp 16:00 Eyes: Negative for injury, pain, redness, and discharge. cp 16:00 ENT: Negative for drainage from ear(s), ear pain, sore throat, difficulty swallowing, difficulty handling secretions. 16:00 Cardiovascular: Negative for chest pain. 16:00 Respiratory: Negative for cough, shortness of breath, wheezing. 16:00 Abdomen/GI: Negative for abdominal pain, nausea, vomiting, and diarrhea, constipation, black/tarry stool, rectal bleeding, bowel incontinence. 16:00 Back: Positive for decreased range of motion, pain at rest, pain with movement, of the low back area. 16:00 : Negative for urinary symptoms, flank pain, difficulty urinating, bladder incontinence. 16:00 Skin: Negative for rash. 16:00 Neuro: Negative for altered mental status, gait disturbance, headache, numbness, tingling, weakness. 16:00 All other systems are negative. Exam: 16:09 Head/Face: Normocephalic, atraumatic. cp 16:09 Constitutional: The patient appears in no acute distress, alert, awake, non-toxic, well developed, well nourished, uncomfortable. 16:09 Cardiovascular: Rate: normal, Edema: is not appreciated, JVD: is not appreciated. 16:09 Respiratory: the patient does not display signs of respiratory distress, Respirations: normal, no use of accessory muscles, no retractions, no splinting, no tachypnea, labored breathing, is not present. 16:09 Abdomen/GI: Exam negative for discomfort, distension, guarding, Inspection: abdomen appears normal. 16:09 Back: pain, that is moderate, of the low back area, ROM is painful, with flexion, vertebral tenderness, is not appreciated. 16:09 Neuro: Motor: moves all fours, strength is normal, Sensation: no obvious gross deficits, Gait: is steady, Deep tendon reflexes are 2+ (normal) in the right patellar, right Achilles, left patellar and left Achilles. Vital Signs: 15:45 BP 116 / 66; Pulse 76; Resp 16; Temp 98.2; Pulse Ox 98% on R/A; Weight 70.31 kg; Height hb 5 ft. 4 in. (162.56 cm); Pain 10/10; 15:45 Body Mass Index 26.61 (70.31 kg, 162.56 cm) hb MDM: 15:57 Patient medically screened. cp 17:00 Data reviewed: vital signs, nurses notes, lab test result(s), urinalysis. cp 17:00 Differential diagnosis: chronic back pain, Pyelonephritis ruptured disc, cp Ureterolithiasis cauda equina, spinal stenosis. 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 Response to treatment: pain improved, and as a result, I will discharge patient. 03/15 16:07 Order name: Urine Dipstick--Ancillary (enter results) 03/15 16:07 Order name: Urine --Ancillary (enter results) 03/15 15:49 Order name: Urine Dipstick-Ancillary (obtain specimen); Complete Time: 16:09 cp 03/15 15:49 Order name: Urine Test (obtain specimen); Complete Time: 16:09 cp Administered Medications: 16:10 Drug: TORadol 60 mg Route: IM; Site: right gluteus; bp 17:10 Follow up: Response: No adverse reaction aj1 16:10 Drug: Diazepam 5 mg Route: IM; Site: right gluteus; bp 17:10 Follow up: Response: No adverse reaction aj1 16:45 Drug: fentaNYL (PF) 25 mcg Route: IM; Site: right deltoid; aj1 17:11 Follow up: Response: No adverse reaction; Pain is decreased; RASS: Alert and Calm (0) aj1 Point of Care Testing: Urine : 16:08 hCG Reading: Negative; Control Reading: Positive; jp3 Disposition: 17:36 Co-signature as Attending Physician, Germain Hoyt MD. rn Disposition: 03/15/19 17:00 Discharged to Home. Impression: Low back pain - chronic, Radiculopathy, lumbosacral region. - Condition is Stable. - Discharge Instructions: Chronic Back Pain, Back Exercises, [id number]. - Prescriptions for Medrol (Alf) 4 mg Oral Tablets, Dose Pack - take 1 tablet by ORAL route as directed - follow package instructions; 1 packet. - Medication Reconciliation Form, Thank You Letter, Antibiotic Education, Prescription Opioid Use form. - Follow up: Private Physician; When: 2 - 3 days; Reason: Worsening of condition. - Problem is an acute exacerbation. - Symptoms have improved. Signatures: Dispatcher [employer] EDMS Melinda Portillo RN RN aj1 Germain Hoyt MD MD rn Page, Corey, PA PA cp Baxter, Heather RN RN Fortunato Jimenez RN RN bp Corrections: (The following items were deleted from the chart) 17:01 17:00 03/15/2019 17:00 Discharged to Home. Impression: Low back pain; Radiculopathy, cp lumbosacral region. Condition is Stable. Forms are Medication Reconciliation Form, Thank You Letter, Antibiotic Education, Prescription Opioid Use. Follow up: Private Physician; When: 2 - 3 days; Reason: Worsening of condition. Problem is an acute exacerbation. Symptoms have improved. cp 17:13 17:01 03/15/2019 17:00 Discharged to Home. Impression: Low back pain - chronic; aj1 Radiculopathy, lumbosacral region. Condition is Stable. Discharge Instructions: Back Exercises, [id number], Chronic Back Pain. Prescriptions for Medrol (Alf) 4 mg Oral Tablets, Dose Pack - take 1 tablet by ORAL route as directed - follow package instructions; 1 packet. and Forms are Medication Reconciliation Form, Thank You Letter, Antibiotic Education, Prescription Opioid Use. Follow up: Private Physician; When: 2 - 3 days; Reason: Worsening of condition. Problem is an acute exacerbation. Symptoms have improved. cp
[2019-03-15 17:19] VITALS: BP 116/66; TEMP 98.2; O2SAT 98
[2019-03-15 17:25] LABS: Urine Blood NEGATIVE (NEG); Urine Glucose NEGATIVE (NEG); Urine Protein NEGATIVE (NEG); Urine Specific Gravity 1.015 (1.005-1.030); Urine pH 6.5 (5.0-7.0)
== END 2019-03-15 17:13 | disposition home or self-care (01) ==
LOC: ER 15:38
DX: M54.17 Radiculopathy, lumbosacral region (principal); F32.9 Major depressive disorder, single episode, unspecified; Z85.3 Personal history of malignant neoplasm of breast; Z88.5 Allergy status to narcotic agent; Z88.2 Allergy status to sulfonamides; Z88.8 Allergy status to other drugs, medicaments and biological substances
CPT/HCPCS: 81025; 81003; 96372; 99284; J3360; J3010

== ENCOUNTER 2021-03-22 19:54 | Emergency (ER) | payer BC ==
--- OUTSIDE RECORDS SUMMARY | 2021-03-22 19:57 | XMS REPORT | Clinical Summary ---
:1970 Author Organization [facility] MD [facility] Address [address] [place] [address] Care Team Providers Name Role Phone MD Neelam Unavailable MD Marlon Unavailable Alan Wheatley PA Unavailable Yuridia Jenkins PA Unavailable Morelia Randolph MANAGER SCIENTIFIC Unavailable MD Samantha Unavailable Bhagrav Che PA Unavailable Lesly Wiggins COSTUMER Unavailable MALIK Roberson Unavailable DELLA Armando Unavailable Unavailable Shahid Peters NP Unavailable MD Keshawn Unavailable Nikki Valera MD Unavailable Unavailable MD Luli Unavailable DELLA Conde Unavailable DELLA Lucio Unavailable MD Raudel Unavailable Trini, MANAGER SCIENTIFIC Unavailable Kaz PA Unavailable Jono Fay MD Unavailable MD Jaleel Unavailable Refugio Smith MD Unavailable MD Sekou Unavailable MD Dinesh Unavailable Nikki Van MANAGER SCIENTIFIC Unavailable Unavailable Justyna Luevano MD Unavailable DELLA Fowler Unavailable MD Marlon Primary Care Provider Allergies Active Allergy Reactions Severity Noted Date Comments Sulfa (Sulfonamide Antibiotics) Itching Low 6 Medications Medication Sig Dispensed Refills Start Date End Date Status ARIPiprazole Take by mouth 0 Act ronal (ABILIFY) 5 mg daily. tablet venlafaxine Take 150 mg by 0 Act ronal (EFFEXOR-XR) 75 mouth daily. mg 24 hr capsule traZODone Take 100 mg by 0 Activ e (DESYREL) 100 mg mouth nightly tablet as needed. multivitamin Take by mouth 0 Act ronal (multivitamin) daily. tab tablet calcium citrate Take by mouth 0 Active 250 mg calcium twice daily. tab cholecalciferol, Take 400 Units 0 Active vitamin D3, by mouth daily. (VITAMIN D3) 5,000 units tab tablet topiramate Take 200 mg by 0 07/11/2016 Act ronal (TOPAMAX) 100 mg mouth at tablet bedtime. BIOTIN ORAL Take 1,000 0 Active Units by mouth. ferrous sulfate Take 75 mg by 0 Active (IRON ORAL) mouth. magnesium Take 400 mg by 0 Activ e oxide,aspartate,c mouth twice itr (TRIPLE daily. MAGNESIUM COMPLEX ORAL) L.acid/B.bifidum/ two times 0 Ac tive B.animal/FOS daily. (PROBIOTIC COMPLEX ORAL) senna (SENOKOT) 3 tablets. 0 Act ronal 8.6 mg tablet baclofen 5 mg tab Take 5 mg by 0 Active mouth twice daily. docusate sodium Take 100 mg by 0 11/06/2015 Active (COLACE) 100 mg mouth. capsule gabapentin Take 400 mg by 0 Acti ve (NEURONTIN) 400 mouth at mg capsule bedtime. melatonin 5 mg Take 10 mg by 0 05/20/2013 Active tab tablet mouth at bedtime. NARCAN 4 0 02/16/2019 Active mg/actuation nasal spray venlafaxine Take 37.5 mg by 0 01/14/2020 A ctive (EFFEXOR-XR) 37.5 mouth every mg 24 hr capsule morning. tamoxifen Take 1 tablet 90 tablet 3 04/01/2020 Activ e (NOLVADEX) 20 mg (20 mg) by tabletIndications mouth daily. : Infiltrating duct carcinoma of areola of right female breast, Osteopenia tapentadol Take 50 mg by 0 Activ e (Nucynta) 50 mg mouth every 6 tablet (six) hours as needed. cloNIDine Place 1 patch 0 08/24/2020 Activ e (CATAPRES-TTS) on the skin 0.2 mg/24 hr once a week. transdermal patch DULoxetine Take 30 mg by 0 Activ e (CYMBALTA) 30 mg mouth daily. capsule citalopram Take 20 mg by 0 Disco ntinued (CeleXA) 40 mg mouth daily. 1 (N ot Applicable) tablet NUCYNTA ER 50 mg Take 100 mg by 0 05/28/2017 02 Discontinued 12 hr tablet mouth daily. 1 (Not Applicable) Nightly tamoxifen TAKE 1 TABLET 90 tablet 4 01/16/2019 Disco ntinued (NOLVADEX) 20 mg DAILY FOR 1 tabletIndications BREAST CANCER : Infiltrating duct carcinoma of areola of right female breast diclofenac sodium Take 1 tablet 0 09/14/19 2 Discontinued (VOLTAREN) 25 MG by mouth twice 1 (Not Applicable) EC tablet daily. multivitamin Take by mouth. 0 Di scontinued (THERAGRAN) 1 (Not Hasmukh licable) tablet BELBUCA 900 mcg Apply 1 Film to 0 02/17/2019 02 Discontinued film cheek twice 1 (Therapy daily. completed) omeprazole Take 40 mg by 0 10/02/2018 Disc ontinued (PriLOSEC) 40 MG mouth. 1 (No t Applicable) capsule Movantik 25 mg as needed. 0 02/13/2020 Dis continued tab 1 (Not Appli cable) Saxenda 3 mg/0.5 ADMINISTER 3 MG 0 02/20/2020 Discontinued mL (18 mg/3 mL) UNDER THE SKIN 1 (Not Applicable) pnij DAILY HYDROcodone-aceta Take 1 tablet 0 03/08/2020 02 Discontinued minophen (NORCO) by mouth every 1 (Not Applicable) 10 mg-325 mg per 6 (six) hours tablet as needed. 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 04/08/2013 Cancer Staging: Pathologic stage from : Stage IA (T1c, N0, cM0) - Signed by Stacey Vargas NP on 01/04/2018 Encounters Date Type Specialty Care Team Description 03/17/2021 Orders Only Breast Medical Abouharb, Infiltrating duct carcinoma, NOS of upper-outer quadrant of breast <Female; Right> (Primary Dx); Oncology MD Felisa Elevated levels of transaminase & lactic acid dehydrogenase 02/24/2021 Orders Only Breast Medical Abouharb, Infiltrating duct carcinoma, NOS of upper-outer quadrant of breast <Female; Right> (Primary Dx); Oncology MD Felisa Elevated levels of transaminase & lactic acid dehydrogenase 02/23/2021 Orders Only Breast Medical Abouharb, Oncology MD Felisa 01/14/2021 Ancillary Procedure Radiology Avbovbo, Lesion o f brain Ufuoma, MANAGER SCIENTIFIC 01/14/2021 Travel 01/04/2021 Orders Only Neurosurgery Avbovbo, Lesion of brain GRAYSON Emmanuel (Primary Dx) 12/16/2020 Consult Neurosurgery Honorio Zamudio MD carcinoma, NO S of upper-outer paris drant of breast <Fema le; Right> 12/16/2020 Travel 12/09/2020 Orders Only Breast Medical Amanda Pierce Infiltrating duct Oncology L, MANAGER SCIENTIFIC carcinoma, NOS of upper-outer paris drant of breast <Fema le; Right> (Primary Dx) 12/08/2020 Ancillary Procedure Radiology Amanda Pierce Infiltr ating duct carcinoma of upper outer quadrant of right female breast; L, MANAGER SCIENTIFIC Infiltrating du ct carcinoma, NOS of upper-outer quadrant of breast <Female; Right> 12/08/2020 Ancillary Procedure Radiology Bassem, Talat Jansen MD 12/08/2020 Orders Only Breast Medical Amanda Pierce Infiltrating duct Oncology L, MANAGER SCIENTIFIC carcinoma of up per outer quadrant of right female br east (Primary Dx) 09/13/2020 Office Visit Pain Medicine Aboarb, Infiltrating d uct carcinoma of areola of right female breast; MD John Roberto Brenda L, MANAGER SCIENTIFIC 09/13/2020 Travel 04/20/2020 Orders Only Dustin Duran, SARS-CoV-2 MD Kelsea vaccination 04/07/2020 Refill Breast Medical Sam, Infiltrating duct Oncology GRAYSON Ibarra carcinoma of ar eola of right female breast (Primary Dx) 04/01/2020 Telemedicine Oncology Abouharb, Infiltrating du ct carcinoma of areola of right female breast; MD Macy Robertoenia 04/01/2020 Ancillary Procedure Radiology Abouharb, Infiltra ting duct carcinoma of areola of right female breast; MD Felisa Osteopenia 04/01/2020 Travel 03/24/2020 Telemedicine Oncology Abouharb, Infiltrating du ct carcinoma of areola of right female breast (Primary Dx); MD John Roberto 03/24/2020 Orders Only Oncology Dann Portillo RN after 03/22/2020 Surgical History Surgery Date Site/Laterality Comments HYSTERECTOMY 02/06/2008 - Partial; with bl adder 02/04/2009 lift RECTAL PROLAPSE REPAIR 02/06/2008 - 02/04/2009 BUNIONECTOMY 02/05/2011 - 02/05/2012 GASTRIC BYPASS 02/06/2012 - 02/04/2013 HIP SURGERY 02/05/2011 - 02/05/2012 AUGMENTATION MAMMAPLASTY 02/05/2006 - Bilateral W/PROSTHETIC IMPLANT 02/04/2007 MASTOPEXY 02/05/2006 - 02/04/2007 MASTECTOMY 02/05/2013 - Bilateral 02/04/2014 LUMBAR DISCECTOMY 09/05/2014 - L4-L5 10/05/2014 HEMORRHOIDECTOMY TISSUE MANAGER EMPLOYEE RELATIONS PLACEMENT 05/20/2013 Bilateral EXCHANGE TISSUE MANAGER EMPLOYEE RELATIONS TO 12/04/2013 Bilateral Lanre rgan 410FF, 655mL BREAST IMPLANT Medical History Medical History Date Comments Anxiety Depression Breast cancer 04/2013 Right IDC Gastroesophageal reflux disease Osteoarthritis Sleep apnea Family History Medical History Relation Name Comments -Breast cancer Paternal Aunt 1 -Breast cancer Paternal Aunt 2 Endometrial cancer Paternal Aunt 3 -Genitourinary (Bladder, Kidney, Prostate, Paternal Grandmother Testicle) Testicular cancer Paternal Uncle Relation Name Status Comments Paternal Aunt 1 Paternal Aunt 2 Paternal Aunt 3 Paternal Grandmother Bladder can cer Paternal Uncle Social History Tobacco Use Types Packs/Day Years Used Date Never Smoker Smokeless Tobacco: Never Used Alcohol Use Standard Drinks/Week Comments Yes 0 (1 standard drink = 0.6 oz pure alcoho l) Socially Alcohol Habits Answer Date Recorded How often do you have a drink containing alcohol? Not asked How many drinks containing alcohol do you have on a typical Not asked day when you are drinking? How often do you have six or more drinks on one occasion? No t asked Comment: Socially 04/27/2015 Sex Assigned at Date Recorded Not on file Job Start Date Occupation Industry Not on file Not on file Not on file Obstetrics History Para Term AB IAB SAB Ectopic Multiple Living Live Births 2 2 Date Outcome GA Total Labor/2nd/3rd Weight Sex Delivery Anes PTL Laura A 1 A5 Name Clin Labor Para Para Last Filed Vital Signs Vital Sign Reading Time Taken Comments Blood Pressure 105/71 12/16/2020 11:04 AM DIVISION PLANT ENGINEER Pulse 70 12/16/2020 11:04 AM [employer] PL[employer] ENG[employer] Temperature 36.6 C (97.9 F) 12/16/2020 11:04 AM [employer] PL[employer] ENGINEER Respiratory Rate 18 12/16/2020 11:04 AM [employer] PLANT ENGINEER Oxygen Saturation 100% 12/16/2020 11:04 AM [employer] PL[employer] ENG[employer]ER Inhaled Oxygen Concentration - - Weight 67.7 kg (149 lb 4 oz) 01/14/2021 9:35 AM [employer] PLANT ENG[employer]ER Height 160 cm (5' 2.99") 01/14/2021 9:35 AM [employer] PL[employer] ENGINEER Body Mass Index 26.45 01/14/2021 9:35 AM [employer] PL[employer] ENG[employer]ER Plan of Treatment Date Type Specialty Care Team Description 09/19/2021 Lab Lab Amanda Pierce, MANAGER SCIENTIFIC [address] [place], [place] [address] (Wo rk) 09/19/2021 Office Visit Survivorship Amanda Pierce, MANAGER SCIENTIFIC [address] [place], [place] [address] (Wo rk) Health Maintenance Due Date Last Done Comments COVID-19 Vaccination (3 - Pfizer risk 03/24/2020 02/25/2020 , 02/03/2020 4-dose series) Procedures Procedure Name Priority Date/Time Associated Comments Diagnosis MRI BRAIN W WO CONTRAST STAT 01/14/2021 12:32 Lesion of bra in Results for this - [facility] PM [employer] PL[employer] ENGINEER procedure are i n the results section. POC CREATININE Routine 01/14/2021 9:33 Results f or this AM [employer] ENGINE[employer] procedure are i n the results section. OSI MRI HEAD Routine 12/02/2020 8:39 Infiltrating duct Result s for this AM CDT carcinoma, NOS of procedure are in upper-outer the results quadrant of breast section. <Female; Right> MANUAL DIFFERENTIAL Routine 09/13/2020 9:37 Infiltrating duct Results for this AM CDT carcinoma of areola procedur e are in of right female the results breast section. Osteopenia Results CBC Routine 09/13/2020 9:37 Infiltrating duct Result s for this AM CDT carcinoma of areola procedur e are in of right female the results breast section. Osteopenia FRACTIONATED BILIRUBIN Routine 09/13/2020 9:37 Infiltrating d uct Results for this AM CDT carcinoma of areola procedur e are in of right female the results breast section. Osteopenia TOTAL PROTEIN Routine 09/13/2020 9:37 Infiltrating duct Resul ts for this AM CDT carcinoma of areola procedur e are in of right female the results breast section. Osteopenia ASPARTATE Routine 09/13/2020 9:37 Infiltrating duct Result s for this AMINOTRANSFERASE AM CDT carcinoma of areola proc edure are in of right female the results breast section. Osteopenia ALANINE AMINOTRANSFERASE Routine 09/13/2020 9:37 Infiltrating duct Results for this AM CDT carcinoma of areola procedur e are in of right female the results breast section. Osteopenia ALKALINE PHOSPHATASE Routine 09/13/2020 9:37 Infiltrating benjamin t Results for this AM CDT carcinoma of areola procedur e are in of right female the results breast section. Osteopenia ALBUMIN LEVEL Routine 09/13/2020 9:37 Infiltrating duct Resul ts for this AM CDT carcinoma of areola procedur e are in of right female the results breast section. Osteopenia CALCIUM LEVEL TOTAL Routine 09/13/2020 9:37 Infiltrating duct Results for this AM CDT carcinoma of areola procedur e are in of right female the results breast section. Osteopenia .GLOMERULAR FILTRATION Routine 09/13/2020 9:37 Infiltrating d uct Results for this RATE AM CDT carcinoma of areola procedur e are in of right female the results breast section. Osteopenia SERUM CREATININE Routine 09/13/2020 9:37 Infiltrating duct Re sults for this AM CDT carcinoma of areola procedur e are in of right female the results breast section. Osteopenia ELECTROLYTE PANEL Routine 09/13/2020 9:37 Infiltrating duct R esults for this AM CDT carcinoma of areola procedur e are in of right female the results breast section. Osteopenia BLOOD UREA NITROGEN Routine 09/13/2020 9:37 Infiltrating duct Results for this AM CDT carcinoma of areola procedur e are in of right female the results breast section. Osteopenia GLUCOSE LEVEL Routine 09/13/2020 9:37 Infiltrating duct Resul ts for this AM CDT carcinoma of areola procedur e are in of right female the results breast section. Osteopenia COMPLETE BLOOD COUNT W/ Routine 09/13/2020 9:37 Infiltrating duct DIFFERENTIAL AM CDT carcinoma of areola of right female breast Osteopenia COMPREHENSIVE METABOLIC Routine 09/13/2020 9:37 Infiltrating duct PANEL AM CDT carcinoma of areola of right female breast Osteopenia MANUAL DIFFERENTIAL Routine 04/01/2020 7:58 Infiltrating duct Results for this AM [employer] ENGINE[employer] carcinoma of areola procedur e are in of right female the results breast section. Osteopenia Results CBC Routine 04/01/2020 7:58 Infiltrating duct Result s for this AM [employer] ENGINEER carcinoma of areola procedur e are in of right female the results breast section. Osteopenia FRACTIONATED BILIRUBIN Routine 04/01/2020 7:58 Infiltrating d uct Results for this AM [employer] ENGINEER carcinoma of areola procedur e are in of right female the results breast section. Osteopenia TOTAL PROTEIN Routine 04/01/2020 7:58 Infiltrating duct Resul ts for this AM [employer] ENGINEER carcinoma of areola procedur e are in of right female the results breast section. Osteopenia ASPARTATE Routine 04/01/2020 7:58 Infiltrating duct Result s for this AMINOTRANSFERASE AM [employer] ENGINEER carcinoma of areola proc edure are in of right female the results breast section. Osteopenia ALANINE AMINOTRANSFERASE Routine 04/01/2020 7:58 Infiltrating duct Results for this AM [employer] ENGINEER carcinoma of areola procedur e are in of right female the results breast section. Osteopenia ALKALINE PHOSPHATASE Routine 04/01/2020 7:58 Infiltrating benjamin t Results for this AM [employer] ENGINEER carcinoma of areola procedur e are in of right female the results breast section. Osteopenia ALBUMIN LEVEL Routine 04/01/2020 7:58 Infiltrating duct Resul ts for this AM [employer]ANT ENGINEER carcinoma of areola procedur e are in of right female the results breast section. Osteopenia CALCIUM LEVEL TOTAL Routine 04/01/2020 7:58 Infiltrating duct Results for this AM [employer] ENGINEER carcinoma of areola procedur e are in of right female the results breast section. Osteopenia .GLOMERULAR FILTRATION Routine 04/01/2020 7:58 Infiltrating d uct Results for this RATE AM [employer] ENGINEER carcinoma of areola procedur e are in of right female the results breast section. Osteopenia SERUM CREATININE Routine 04/01/2020 7:58 Infiltrating duct Re sults for this AM [employer] ENGINEER carcinoma of areola procedur e are in of right female the results breast section. Osteopenia ELECTROLYTE PANEL Routine 04/01/2020 7:58 Infiltrating duct R esults for this AM [employer] ENGINEER carcinoma of areola procedur e are in of right female the results breast section. Osteopenia BLOOD UREA NITROGEN Routine 04/01/2020 7:58 Infiltrating duct Results for this AM [employer] ENGINEER carcinoma of areola procedur e are in of right female the results breast section. Osteopenia GLUCOSE LEVEL Routine 04/01/2020 7:58 Infiltrating duct Resul ts for this AM [employer] ENGINE[employer] carcinoma of areola procedur e are in of right female the results breast section. Osteopenia ESTRADIOL LEVEL Routine 04/01/2020 7:58 Infiltrating duct Res ults for this AM [employer] ENGINEER carcinoma of areola procedur e are in of right female the results breast section. Osteopenia FOLLICLE STIMULATING Routine 04/01/2020 7:58 Infiltrating benjamin t Results for this HORMONE LEVEL AM [employer] ENGINEER carcinoma of areola procedu re are in of right female the results breast section. Osteopenia LUTEINIZING HORMONE Routine 04/01/2020 7:58 Infiltrating duct Results for this AM [employer] ENG[employer] carcinoma of areola procedur e are in of right female the results breast section. Osteopenia PHOSPHORUS LEVEL Routine 04/01/2020 7:58 Infiltrating duct Re sults for this AM [employer] ENGINEER carcinoma of areola procedur e are in of right female the results breast section. Osteopenia MAGNESIUM LEVEL Routine 04/01/2020 7:58 Infiltrating duct Res ults for this AM [employer] ENGINEER carcinoma of areola procedur e are in of right female the results breast section. Osteopenia COMPLETE BLOOD COUNT W/ Routine 04/01/2020 7:58 Infiltrating duct DIFFERENTIAL AM [employer] ENG[employer] carcinoma of areola of right female breast Osteopenia COMPREHENSIVE METABOLIC Routine 04/01/2020 7:58 Infiltrating duct PANEL AM [employer] ENG[employer] carcinoma of areola of right female breast Osteopenia DEXA BONE MINERAL Routine 04/01/2020 7:45 Infiltrating duct R esults for this DENSITY BOTH HIPS AND AM [employer]ANT ENGINEER carcinoma of areola procedure are in SPINE of right female the results breast section. Osteopenia after 03/22/2020 Results MRI Brain with and without Contrast - [facility]I (01/14/2021 12:32 PM [employer]ISION PL[employer] ENG[employer]) Specimen Impressions [id number] - 01/16/2021 9:51 PM [employer]ISION PLANT ENGINEER Stable left cerebellar nonenhancing T2 FLAIR hyperintense lesion associated with susceptibility signal changes and decreased perfusion parameters on DCS sugge sting area of gliosis, metastasis considered unlikely. Narrative [id number] - 01/16/2021 9:51 PM DIVISION PLANT ENGINEER FULL RESULT: Examination: MRI BRAIN W WO CONTRAST - A BTI on 01/14/2021 12:32 PM Clinical History: A 50-year-old female w ith prior history of breast cancer Indication: brain lesion Comparison: Outside center MRI 12/02. Technique: MRI brain with and without intravenous c ontrast was performed. Advanced brain tumor imaging (ABTI) sequ ences were also performed including dynamic contrast enhanced (DCE) perfusion imaging, and dynamic susceptibility contrast (DSC) perfusion imaging, and single vox el magnetic resonance spectroscopy (MRS) with TE of 144. 3 Sameera. Findings: Conventional MRI Brain: There is stable T2 FLAIR hyperintense no nenhancing lesion measuring about 1.3 cm in size in the left posterior aspect of the vermis/cerebellum. Susceptibility signal changes are noted within the lesion and there is no restricted diffusion. Th ere is no mass effect or midline shift. No abnormal parenchymal or leptomeningea l enhancement is seen. The supratentorial brain parenchyma is unremarkable. The ventricles are normal in size and midline. There is no acute ischemia. No extra-ax ial fluid collection. Major intracranial flow voids are maintained. Advanced Brain Tumor Imaging (ABTI): Magnetic resonance spectroscopy (MRS): Single voxel spectroscopy demonstrate no rmal distribution of metabolites. Perfusion Imaging: Dynamic contrast enhanced (DCE): There is no increase in capillary permea bility associated with T2 FLAIR hyperintense lesion in the left vermis/cerebellar. Dynamic susceptibility contrast (DSC): There is decrease of relative cerebral b lood volume associated with T2 FLAIR hyperintense lesion in the left vermis/cerebellum. Procedure Note Ruby Asencio MD - 01/16/2021 FULL RESULT: Examination: MRI BRAIN W WO CONTRAST - A BTI on 01/14/2021 12:32 PM Clinical History: A 50-year-old female w ith prior history of breast cancer Indication: brain lesion Comparison: Outside center MRI 12/02. Technique: MRI brain with and without intravenous c ontrast was performed. Advanced brain tumor imaging (ABTI) sequ ences were also performed including dynamic contrast enhanced (DCE) perfusion imaging, and dynamic susceptibility contrast (DSC) perfusion imaging, and single voxel magnetic resonance spectroscopy (MRS) with TE of 144. 3 Sameera. Findings: Conventional MRI Brain: There is stable T2 FLAIR hyperintense no nenhancing lesion measuring about 1.3 cm in size in the left posterior aspect of the vermis/cerebellum. Susceptibility signal changes are noted within the lesion and there is no restricted diffusion. There is no mass e ffect or midline shift. No abnormal parenchymal or leptomeningea l enhancement is seen. The supratentorial brain parenchyma is unremarkable. The ventricles are normal in size and midline. There is no acute ischemia. No extra-axial fluid collection. Major intracranial flow void s are maintained. Advanced Brain Tumor Imaging (ABTI): Magnetic resonance spectroscopy (MRS): Single voxel spectroscopy demonstrate no rmal distribution of metabolites. Perfusion Imaging: Dynamic contrast enhanced (DCE): There is no increase in capillary permea bility associated with T2 FLAIR hyperintense lesion in the left vermis/cerebellar. Dynamic susceptibility contrast (DSC): There is decrease of relative cerebral b lood volume associated with T2 FLAIR hyperintense lesion in the left vermis/cerebellum. IMPRESSION: Stable left cerebellar nonenhancing T2 F LAIR hyperintense lesion associated with susceptibility signal changes and decreased perfusion parameters on DCS suggesting area of gliosis, metastasis considered unlikely. Performing Organization Address City/State/ZIP Code Phon e Number [id number] POC Creatinine (01/14/2021 9:33 AM DIVISION PLANT ENGINEER) POC Crea 0.9 0.6 - 1.3 POC [facility] Comment: mg/dL Medications, especially hydr oxyurea or supplements, such as ascorbate, can interfere with test results causing a falsely and significantly higher result than expected. If a problem is suspected with a patient's result, a sample should be sent to the laboratory for confirmatory testing. Method description: The i-ST AT is an analyzer used for in vitro quantification of various analytes in whole blood. The device uses a single disposable cartridge which contains microfabricated sensors, a calibration solution, fluidics system, and a waste chamber. Each test cartridge contains chemically sensitive biosensors on a silicon chip that are configured to perform specific tests. The microfabricated sensors measure analyte concentration by an electrochemical assay. POC eGFR-AA 86 >=60 POC [facility] Comment: mL/min/1.73 m2 Normal eGFR >= 60 mL/min/1.73 m2 The eGFR is calculated using the CKD-EPI equation. The eGFR declines with age. eGFR <60 mL/min/1.73 m2 is considered as "decreased" This equation should only be used for patients 18 and older. According to the [facility]'s Kidney Disease Outcome Quality Initiative (KDOQI) classification and 2012 Kidney Disease Improving Global Outcomes (KDIGO) Clinical Practice Guideline, the stage of CKD should be categorized based on estimated GFR. Stage Description GFR mL/min/1.73 m2 1 Kidney damage with normal or high GFR >=90 2 Kidney damage with mild decrease in GFR 60-89 3a Mild to moderate decrease in GFR 45-59 3b Moderate to severe decrease in GFR 30-44 4 Severe decrease in GFR 15-29 5 Kidney failure <15 (or dialysis) POC eGFR-BRUCE 74 >=60 POC [facility] Comment: mL/min/1.73 m2 Normal eGFR >= 60 mL/min/1.73 m2 The eGFR is calculated using the CKD-EPI equation. The eGFR declines with age. eGFR <60 mL/min/1.73 m2 is considered as "decreased" This equation should only be used for patients 18 and older. According to the [facility]'s Kidney Disease Outcome Quality Initiative (KDOQI) classification and 2012 Kidney Disease Improving Global Outcomes (KDIGO) Clinical Practice Guideline, the stage of CKD should be categorized based on estimated GFR. Stage Description GFR mL/min/1.73 m2 1 Kidney damage with normal or high GFR >=90 2 Kidney damage with mild decrease in GFR 60-89 3a Mild to moderate decrease in GFR 45-59 3b Moderate to severe decrease in GFR 30-44 4 Severe decrease in GFR 15-29 5 Kidney failure <15 (or dialysis) POC Clean Dev Yes POC [facility] Performing Lab Biomedical POC [facility] ImagingComment: [facility] [address], [address] [place] [address]; Point of Care Manager Quality Improvement: Ana Briggs MD Specimen Blood Performing Organization Address City/State/[facility] Code Phon e Number POC [facility] OSI MRI HEAD (12/02/2020 8:39 AM CDT) Specimen Impressions [id number] - 12/09/2020 4:13 PM CDT Left medial cerebellar nonenhancing FLAI R hyperintensity with mild mass effect. This does not have the appearance of metastas is from breast cancer. Low-grade glioma could have this appearance. Continued follow-u p is recommended. 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 Comparison: CT brain 06/23/2013. Technique: Pre and postcontrast MR image s of the brain dated 12/02/2020 were submitted for interpretation. Findings: A rounded FLAIR hyperintensity with mild mass effect is seen in the left medial cerebellar hemisphere. It was not identifiable on CT brain 06/23/2013. There is no associated enhancement. Cerebellar tonsillar ectopia is noted. T he ventricles are within normal limits. Major intracranial flow voids are intact. There is no restricted diffusion to indicate acute infarct. 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 Comparison: CT brain 06/23/2013. Technique: Pre and postcontrast MR image s of the brain dated 12/02/2020 were submitted for interpretation. Findings: A rounded FLAIR hyperintensity with mild mass effect is seen in the left medial cerebellar hemisphere. It was not identifiable on CT brain 06/23/2013. There is no associated enhancement. Cerebellar tonsillar ectopia is noted. T he ventricles are within normal limits. Major intracranial flow voids are intact. There is no restricted diffusion to indicate acute infarct. 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 This does not have the appearance of metastasis from breast cancer. Low-grade glioma could have this appearance. Continued follow-up is recommended. Performing Organization Address City/[facility] Phon e Number [id number] .Serum Creatinine (09/13/2020 9:37 AM CDT)Only the most recent of2 results within the time period is included. Pathologist Sig álvaro Creatinine 0.84Comment: Testing 0.51 - 0.95 mg/dL [place] performed at [facility], [address] [place] [phone] Specimen Blood Performing Organization Address [facility] [place] [address] [place] [address] (ABNORMAL) .CBC (09/13/2020 9:37 AM CDT)Only the most recent of2 resultswithin the time period is included. Pathologist Sig álvaro WBC 6.3Comment: All 4.0 - 11.0 K/uL [place] components of the CBC performed at [facility], [address] [place] [address] 80834 RBC 4.59Comment: All 4.00 - 5.50 [place] components of the CBC M/uL performed at [facility], [address] [place] [address] 65436 Hgb 13.9Comment: As part 12.0 - 16.0 [place] of CBC or as an gm/dL individual orderable testing performed at [facility], [address] [place] [address] 80698 Hct 44.0Comment: As part 37.0 - 47.0 % [place] of CBC testing performed at [facility], [address] [place] [address] 38628 MCV 96Comment: As part of 82 - 98 fL [place] CBC testing performed at [facility], [address] [place] [address] 66768 MCH 30.3Comment: As part 27.0 - 31.0 pg [place] of CBC testing performed at [facility], [address] [place] [address] 82761 MCHC 31.6Comment: As part 31.0 - 36.0 [place] of CBC testing gm/dL performed at [facility], [address] [place] [address] 88932 RDW-SD 44.0Comment: As part 35.1 - 46.3 fL [place] of CBC testing performed at [facility], [address] [place] [address] 60148 RDW-CV 12.4Comment: As part 12.0 - 15.5 % [place] of CBC testing performed at [facility], [address] [place] [address] 82755 Platelet count 229Comment: As part 140 - 440 K/uL [place] of CBC or an individual orderable testing performed at [facility], [address] [place] [address] 50671 MPV 10.6 (H)Comment: As 4.0 - 10.4 fL [place] part of CBC testing performed at [facility], [address] [place] [address]15 Specimen Blood Performing Organization Address City/State/ZIP Code Phon e Number [place] [id number] [address] [place] [address] Glomerular Filtration Rate (09/13/2020 9:37 AM CDT)Only the most recent of2 resultswithin the time period is included. [facility] eGFR-AA 94 >=60 mL/min/1.73 [place] Comment: sq. m Normal eGFR >= 60 mL/min/1.73 m2 Note: The eGFR is calculated using the CKD-EPI equation. The eGFR declines with age. eGFR <60 mL/min/1.73 m2 is considered as "decreased". This equation should only be used for patients 18 and older. According to the [facility]'s Kidney Disease Outcome Quality Initiative (KDOQI) classification and 2012 Kidney Disease Improving Global Outcomes (KDIGO) Clinical Practice Guideline, the stage of CKD should be categorized based on estimated GFR. Stage Description GFR mL/min/1.73 m2 1 Normal or high GFR >=90 2 Mildly decreased GFR 60-89 3a Mildly to moderately decreased GFR 45-59 3b Moderately to severely decreased GFR 30-44 4 Severely decreased GFR 15-29 5 Kidney failure <15 Testing performed at [facility], [address] [place] [address] 66446 eGFR-BRUCE 81 >=60 mL/min/1.73 [place] Comment: sq. m Normal eGFR >= 60 mL/min/1.73 m2 Note: The eGFR is calculated using the CKD-EPI equation. The eGFR declines with age. eGFR <60 mL/min/1.73 m2 is considered as "decreased". This equation should only be used for patients 18 and older. According to the [facility]'s Kidney Disease Outcome Quality Initiative (KDOQI) classification and 2012 Kidney Disease Improving Global Outcomes (KDIGO) Clinical Practice Guideline, the stage of CKD should be categorized based on estimated GFR. Stage Description GFR mL/min/1.73 m2 1 Normal or high GFR >=90 2 Mildly decreased GFR 60-89 3a Mildly to moderately decreased GFR 45-59 3b Moderately to severely decreased GFR 30-44 4 Severely decreased GFR 15-29 5 Kidney failure <15 Testing performed at [facility], [address] [place] [address] 24300 Specimen Blood Performing Organization Address City/State/ZIP Code Phon e Number [place], [place] [id number] [place] [address] Fractionated Bilirubin (09/13/2020 9:37 AM CDT)Only the most recent of2 results within the time period is included. Pathologist Sig nature Bili Total <0.3 <=1.2 mg/dL [place] Comment: Direct and indirect bilirubi n will not be reported when Total bilirubin result is <0.3 mg/dL Indocyanine Green (ICG) may cause falsely elevated bilirubin results. Total and direct bilirubin must not be measured from samples containing indocyanine green. False elevation of total lauro irubin can be seen in patients with IgG concentrations above 28 g/L. Testing performed at [facility], [address] [place] [address] Specimen Blood Performing Organization Address City/State/ZIP Code Phon e Number [address] Differential (09/13/2020 9:37 AM CDT)Only the most recent of2 resultswithin the time period is included. Neutrophil % 52.5Comment: All 42.0 - 66.0 % [place] components of the Differential performed at [facility], [address] [place] [address] Lymphocyte % 37.4Comment: As part 24.0 - 44.0 % [place] of the Differential testing performed at [facility], [address] [place] [address] Monocyte % 6.8Comment: As part of 2.0 - 7.0 % [place] the Differential testing performed at [facility], [address] [place], [place] [id number] Eosinophil % 2.7Comment: As part of 1.0 - 4.0 % [place] the Differential testing performed at [facility], [address] [place] [address] Basophil % 0.3Comment: As part of 0.0 - 1.0 % [place] the Differential testing performed at [facility], [address] [place] [address] IGRE % 0.3 0.0 - 0.4 % [place] Comment: IGRE % count includes Metamyelocytes, Myelocytes, and Promyelocytes. As part of the Differential testing performed at [facility], [address] [place] [address] Neutrophil Abs 3.31Comment: As part 1.70 - 7.30 [place] of the Differential K/uL testing performed at [facility], [address] [place] [address] Lymphocyte Abs 2.36Comment: As part 1.00 - 4.80 [place] of the Differential K/uL testing performed at [facility], [address] [place] [address] Monocyte Abs 0.43Comment: As part 0.08 - 0.70 [place] of the Differential K/uL testing performed at [facility], [address] [place] [address] Eosinophil Abs 0.17Comment: As part 0.04 - 0.40 [place] of the Differential K/uL testing performed at [facility], [address] [place] [address] Basophil Abs 0.02Comment: As part 0.00 - 0.10 [place] of the Differential K/uL testing performed at [facility], [address] [place] [address] IG Abs 0.02Comment: As part 0.00 - 0.04 [place] of the Differential K/uL testing performed at [facility], [address] [place] [address] Specimen Blood Performing Organization Address City/State/ZIP [facility] Phon e Number [address] BUN (09/13/2020 9:37 AM CDT)Only the most recent of2 resultswithin the time period is included. Pathologist [facility] BUN 15Comment: Testing 6 - 23 mg/dL [place] performed at [facility], [address] [place] [address] Specimen Blood Performing Organization Address City/State/ZIP [place] [address] [place] [address] (ABNORMAL) ALT (09/13/2020 9:37 AM CDT)Only the most recent of2 resultswithin the time period is included. Pathologist Sig [facility] ALT 39 (H)Comment: Testing <=33 U/L [place] performed at [facility], [address] [place] [address] 74874 Specimen Blood Performing Organization Address City/[facility] [place] [address] [place] [address] (ABNORMAL) Aspartate Aminotransferase (09/13/2020 9:37 AM CDT)Only the most recent of2 resultswithin the time period is included. Pathologist Sig [facility] AST 33 (H)Comment: Testing <=32 U/L [place] performed at [facility], [address] [place] [address] 84748 Specimen Blood Performing Organization Address City/[facility]/ZIP [place] [address] [place] [address] Total Protein (09/13/2020 9:37 AM CDT)Only the most recent of2 resultswithin the time period is included. Pathologist [facility] Total Protein 6.6Comment: Testing 6.4 - 8.3 g/dL [place] performed at [facility], [address] [place] [address] 75394 Specimen Blood Performing Organization Address City/[facility]/ZIP [place] [address] [place] [address] Alkaline Phosphatase (09/13/2020 9:37 AM CDT)Only the most recent of2 results within the time period is included. Pathologist Sig [facility] Alk Phos 100Comment: Testing 35 - 104 U/L [place] performed at [facility], [address] [place] [address] 41048 Specimen Blood Performing Organization Address City/State/ZIP [place] [address] [place] [address] Glucose Level (09/13/2020 9:37 AM CDT)Only the most recent of2 resultswithin the time period is included. Pathologist Sig nature Glucose Level 96 70 - 99 mg/dL [place] Comment: Effective 09/01/15, the gluco se reference intervals have been updated based on [place] [employer] guidelines (Standards of Medical Care in Diabetes 2016. Diabetes Care 2016; 39: S13-S22). Fasting blood glucose: Normal: 70-99 mg/dL Impaired fasting glucose (in creased risk for diabetes or pre-diabetes): 100- 125 mg/dL Diabetes mellitus: >/=126 mg/dL Random blood glucose: Normal: 70-199 mg/dL Note: Random glucose >100 mg/dL is assoc iated with increased risk for diabetes Testing performed at [facility], [address] [place] [address] Specimen Blood Performing Organization Address City/[facility]/ZIP Code Phon e Number [address] Calcium Level (09/13/2020 9:37 AM CDT)Only the most recent of2 resultswithin the time period is included. Pathologist Sig nature Calcium Lvl 9.0Comment: Testing 8.4 - 10.2 mg/dL [place] performed at [facility], [address] [place] [address] 23055 Specimen Blood Performing Organization Address City/[facility]/ZIP Code Phon e Number [address] Albumin Level (09/13/2020 9:37 AM CDT)Only the most recent of2 resultswithin the time period is included. Pathologist Sig nature Albumin Lvl 4.3Comment: Testing 3.5 - 5.2 gm/dL [place] performed at [facility], [address] [place] [address] 64011 Specimen Blood Performing Organization Address City/State/ZIP Code Phon e Number [place] [phone] [address] [place] [address] Electrolyte Panel (09/13/2020 9:37 AM CDT)Only the most recent of2 results within the time period is included. Pathologist Sig nature Sodium Lvl 141Comment: Testing 136 - 145 mEq/L [place] performed at [facility], [address] [place] [address] 33578 Potassium Lvl 4.1Comment: Testing 3.5 - 5.1 mEq/L [place] performed at [facility], [address] [place] [address] 72073 Chloride 107Comment: Testing 98 - 107 mEq/L [place] performed at [facility], [address] [place] [address] 56192 CO2 24Comment: Testing 22 - 29 mEq/L [place] performed at [facility], [address] [place] [address] 06883 Anion Gap 10Comment: Testing 4 - 14 mEq/L [place] performed at [facility], [address] [place] [address] 08858 Specimen Blood Performing Organization Address City/[facility] Phon e Number [place], [place] [id number] [place] [address] Estradiol (04/01/2020 7:58 AM DIVISION PLANT ENGINEER) Pathologist Sig nature Estradiol 112 pg/mL [facility] Comment: [facility] Reference Ranges: Adult Females: Follicular Phase 12.0 - 233.0 pg/mL Ovulation Phase 41.0 - 398.0 pg/mL Luteal Phase 22.0 - 341.0 pg/mL Postmenopausal <138.0 pg/mL Adult Males: 11 - 43 pg/mL Boys (1-10 years): <20.0 pg/mL Girl (1-10 years): <27.0 pg/mL Patients treated with Fulves trant will show falsely increase in estradiol concentrations due to cross-reaction. For further information or assistance, please contact pathologist. Specimen Blood Performing Organization Address City/State/ZIP Code Phon e Number [facility] CANCER Unless otherwise noted, [place] [address] [place] all lab tests performed by: Division of Pathology and Laboratory Medicine [address] Phosphorus Level (04/01/2020 7:58 AM DIVISION PLANT ENGINEER) Pathologist Sig nature Phosphorus 4.2Comment: Testing 2.5 - 4.5 mg/dL [place] performed at [facility], [address] [place] [address] 66113 Specimen Blood Performing Organization Address City/[facility] Code Phon e Number [place], [place] [id number] [place] [address] Magnesium Level (04/01/2020 7:58 AM DIVISION PLANT ENGINEER) Pathologist Sig nature Magnesium 2.6Comment: Testing 1.6 - 2.6 mg/dL [place] performed at [facility], [address] [place] [address] 10302 Specimen Blood Performing Organization Address City/[facility]/ZIP Code Phon e Number [place], [place] [id number] [place] [address] LH (04/01/2020 7:58 AM DIVISION PLANT ENGINEER) Pathologist Sig nature LH 45.4 mIU/mL [facility] Comment: [facility] Female Luteinizing Hormone Reference Ranges: LOW H IGH Follicular 2.4 12.6 Ovulation 14.0 95.6 Luteal 1.0 11.4 Postmenopause 7.7 58.5 Specimen Blood Performing Organization Address City/State/ZIP Code Phon e Number [facility] CANCER Unless otherwise noted, [address] all lab tests performed by: Division of Pathology and Laboratory Medicine Isabelle Quinonez FSH (04/01/2020 7:58 AM DIVISION PLANT ENGINEER) Pathologist Sig nature FSH 48.7 mIU/mL [facility] Comment: [facility] Female Follicle Stimulating Hormone Reference Ranges: LOW HI GH Follicular 3.5 12.5 Ovulation 4.7 21.5 Luteal 1.7 7.7 Postmenopause 25.8 134.8 Specimen Blood Performing Organization Address City/State/ZIP Code Phon e Number [facility] CANCER Unless otherwise noted, [address] all lab tests performed by: Division of Pathology and Laboratory Medicine Isabelle Quinonez NM DEXA Bone Mineral Density Both Hips and Spine (04/01/2020 7:45 AM DIVISION PLANT ENGINEER) Specimen Impressions [id number] - 04/01/2020 8:27 AM DIVISION PLANT ENGINEER Osteopenia based on measurements of left femoral neck and the left distal forearm. I personally reviewed these image(s) rigoberto wallace with the resident's/fellow's interpretations, certify that if a procedure was performed I was physically present, and agree with the final report. Narrative [id number] - 04/01/2020 8:27 AM DIVISION PLANT ENGINEER FULL RESULT: Examination: Bone Mineral Density (DXA), 04/01/2020 Clinical History: 49-year-old postmenopa usal female with breast cancer. Indication: Assessment of bone mineral d ensity.. Comparison: None. Technique: Bone mineral density was obta ined using Hologic dual-energy X-ray absorptiometry. Lumbar spine was not included due to presence of surgical hardware. Nondominant distal forearm was included. Findings: The findings are provided in t he below table(s). Bone Density: Region Exam Date BMD T- Z- g/cm2 Score Score Femoral Neck (Left) 04/01/2020 0. 712 -1.2 -0.5 Total Hip (Left) 04/01/2020 0. 865 -0.6 -0.2 Femoral Neck (Right) 04/01/2020 0. 754 -0.9 -0.1 Total Hip (Right) 04/01/2020 0. 864 -0.6 -0.2 1/3 Forearm (Left) 04/01/2020 0. 612 -1.2 -0.5 For postmenopausal women and men age 50 and over, the World Health Organization criteria for BMD interpreta tion classify patients as: Normal (T-score at or above -1.0), Osteopenia ( T-score between -1.0 and -2.5), or Osteoporosis (T-score at or be low -2.5). Procedure Note Waqas Floyd MD - 04/01/2020 FULL RESULT: Examination: Bone Mineral Density (DXA), 04/01/2020 Clinical History: 49-year-old postmenopa usal female with breast cancer. Indication: Assessment of bone mineral d ensity.. Comparison: None. Technique: Bone mineral density was obta ined using Hologic dual-energy X-ray absorptiometry. Lumbar spine was not included due to presence of surgical hardware. Nondominant distal forearm was included. Findings: The findings are provided in t he below table(s). Bone Density: Region Exam Date BMD T- Z- g/c m2 Score Score Femoral Neck (Left) 04/01/2020 0.712 -1. 2 -0.5 Total Hip (Left) 04/01/2020 0.865 -0. 6 -0.2 Femoral Neck (Right) 04/01/2020 0.754 -0. 9 -0.1 Total Hip (Right) 04/01/2020 0.864 -0. 6 -0.2 1/3 Forearm (Left) 04/01/2020 0.612 -1. 2 -0.5 For postmenopausal women and men age 50 and over, the World Health Organization criteria for BMD interpreta tion classify patients as: Normal (T-score at or above -1.0), Osteopenia ( T-score between -1.0 and -2.5), or Osteoporosis (T-score at or be low -2.5). IMPRESSION: Osteopenia based on measurements of left femoral neck and the left distal forearm. I personally reviewed these image(s) rigoberto wallace with the resident's/fellow's interpretations, certify that if a procedure was performed I was physically present, and agree with the final report. Performing Organization Address City/State/ZIP Code Phon e Number [id number] after 03/22/2020 Insurance Payer Benefit Plan / Subscriber ID Effective Dates Phone Addre ss Type Group [facility]UE [facility] [place] POS [id number] 2014-Present [id number] [place] [address] Mary Jo Mcnally Personal/Family Self 1970 [address] [place] [id number] Mary Jo Mcnally Personal/Family Self 1970 [address] [place] [address] Advance Directives Type Date Recorded Patient Electroencephalograph Technician Explanati on Advance Directives: Medical 04/21/2013 12:00 AM H istorical Power of Township Supervisor Care Teams Supervising Airplane Pilot Relationship Specialty Start Date End Date Shima Mason MD PCP - General Breast Medical Oncology 08/06/15 [facility] [address] Marii Richter MD Physician 04/14/[address] [place] [address] Shima Mason MD Physician 04/14/[address] [place] [address] Shanthi Wheatley, PA Physician Calcine Furnace Tender 04/14/15 [address] [place] [address] Iveth Jenkins PA Physician [employer] Furn[employer] Tender 04/14/[address] [place] [address] [id number] Gisselle Randolph, Nurse Practitioner 04/14/15 [employer] [address] [place] [address] [id number] Pipo Singh MD Physician 04/14/[address] [place] [address] [id number] Agnes Che PA Physician [employer] 04/14/[address] [place] [address] [phone] Ammy Wiggins, Nurse Practitioner 04/14/[address] [place] [address] [id number] Jaquan Roberson FNP Nurse Practitioner 04/14/[address] [place] [address] [id number] Bennie Armando PA Physician [employer] 04/14/[address] [place] [address] [id number] Lashell Peters, MANAGER [employer] Nurse Practitioner 04/14/[address] [place] [address] [place] [address] Jamie Liao MD Physician 04/14/[address] [place] [address] [id number] Jazmyn Valera MD Physician 04/14/15 Rafiq Rockwell MD Physician 04/14/[address] [place] [address] [id number] Mónica Conde PA Physician [employer] 04/14/[address] [place] [address] [id number] Christian Lucio PA Physician [employer] 04/14/[address] [place] [address] [id number] Eugenie Starks MD Physician 04/14/[address] [place] [address] [id number] Dulce Feliz, GRAYSON Nurse Practitioner 04/14/[address] [place] [address] [phone] Rachana Mccurdy PA Physician [employer] 04/14/15 [place] [address] Cindy Fay MD Physician 04/14/[address] [place] [address] [id number] Jonah Marmolejo MD Physician 04/14/[address] [place] [address] [phone] Floyd Smith MD Physician 04/14/[address] [place] [address] [phone] Pat Sapp MD Physician 04/14/[address] [place] [address] [id number] Lashon Montiel MD Physician 04/14/[address] [place] [address] 44090 Katia Van, MANAGER SCIENTIFIC Nurse Practitioner 04/14/15 Brittany Luevano, Physician 04/14/[address] [place] [address] [id number] Ceci Fowler PA Physician [employer] 04/14/[address] [place] [address] [id number]
--- OUTSIDE RECORDS SUMMARY | 2021-03-22 20:00 | XMS REPORT | Continuity of Care Document ---
:1970 Author Organization [facility] t Address [address] [place] [address] Support Name Relationship Address Phone Uli Spouse [address] [place] [address] L Uli Spouse [address] [place] [address] Bala Mother Unavailable Uli Spouse [address] [place] [address] Lesly EDGE X [address] [place] [address] Uli (Sis In Law) Other UNKNOWN [phone] Uli Spouse [address] [place] [address] Care Team Providers Name Role Phone [phone] Primary Care Physician Unavailable Attending Clinician Unavailable Raquel GARCIA Attending Clinician Sultana GARCIA Attending Clinician Yuriy Olguin MD Attending Clinician Doctor Unassigned, Name Attending Clinician Unavailable Jax Avery MD Attending Clinician Tyrese HEREDIA Attending Clinician Unavailable Jamil PANDEY Attending Clinician Unavailable Doris HAND SAMPLE MAKER Attending Clinician DORIS Attending Clinician Unavailable Yuriy Moss MD Attending Clinician Kalia PANDEY Attending Clinician Unavailable Piero NAVARRO Attending Clinician Unavailable Oj HEREDIA Attending Clinician Unavailable Jaime MERCADO Attending Clinician Unavailable Jaime Mercado MD Attending Clinician Stan GALICIA L Attending Clinician Justyna Luevano MD Attending Clinician Lesly PIERCE Attending Clinician Unavailable Refugio LUEVANO Attending Clinician Unavailable Waqas aTi MD Attending Clinician Tang HEREDIA Attending Clinician Unavailable Only, Db Test Attending Clinician Unavailable Unknown Attending Clinician Unavailable UNKNOWN Attending Clinician Unavailable Antionette SNOWBOARDER Attending Clinician ANTIONETTE Attending Clinician Unavailable ABOUHARB Attending Clinician Unavailable Jaime Bearden MD Attending Clinician Janay Coates Attending Clinician Renee GARCIA Attending Clinician Sam GALICIA Attending Clinician Bandar HEREDIA, T Attending Clinician Unavailable Nikki RIBEIRO Attending Clinician Unavailable FAILLAJUAN Attending Clinician Unavailable Shahid GARNER Attending Clinician Unavailable Only, Test Attending Clinician Unavailable Shahid Garner MD Attending Clinician Kristian SOUZA Attending Clinician NONAMINANALI Attending Clinician Unavailable RUPAL Attending Clinician Unavailable AHMED Admitting Clinician Unavailable Payers Payer Name Policy Type Policy Number Effective Date Expiration Date 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 Added automatic ally from request for surgery [id number] Idiopathic Idiopathic Disease Active Overview : Methodi scoliosis scoliosis 09-09 Formattin s t 00:00: g of this Hospita 00 note l might be different from the original. Added automatic ally from request for surgery [id number] Lumbar Lumbar Disease Active Overview: Method i spondylosi spondylosi 09-[address] s s 00:00: g of this Hospita 00 note l might be different from the original. Added automatic ally from request for surgery [id number] Radiculopa Radiculopa Disease Active M ethodi thy, thy, 5-14 st lumbar lumbar 00:00: Hospita region region 00 l Chronic Chronic Disease Active 2017-02 MD neck pain neck pain 1-30 Keshav rso 00:00: n 00 Menopausal Menopausal Disease Active M D flushing flushing 5-08 Gerald o 00:00: n 00 Arthritis Arthritis Disease Active MD 5-03 Anderso 00:00: n 00 Acquired Acquired Disease Active MD absence of absence of - An derso bilateral bilateral 00:00: n breasts breasts 00 and and nipples nipples Personal Personal Disease Active MD history of history of - An derso antineopla antineopla 00:00: n stic stic 00 chemothera chemothera py py Fat Fat Disease Active MD necrosis necrosis 03-02 Gerald o of breast of breast 00:00: n 00 Adjustment Adjustment Disease Active M D disorder disorder 3- Gerald o with with 00:00: n depressed depressed 00 mood mood Insomnia Insomnia Disease Active MD 3-22 Anderso 00:00: n 00 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 Scoliosis Scoliosis Problem Active Uni vers HL7.CCDAR2 [facility] [place] [facility] DDD DDD Problem Active Univers (degenerat (degenerat HL7.CCDAR2 ity of ronal disc ronal disc [place] disease), disease), Phys ici lumbar lumbar ans Lumbar Lumbar Problem Active Univers 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 [place] syndrome syndrome Physic i ans No known No known Disease [facility] active active Gustine problems problems of Medicin e Allergies, Adverse Reactions, Alerts Allergy Allergy Status Severity Reaction(s) Onset Inactive Treating Comm ents Source Name Type Date Date Clinician Other Propensi Active Other (See NO STICK Me thodi ty to Comments) 3-[address] adverse 00:00: THE RIGHT Hospit a reaction 00 ARM l s Opioid Propensi Active Severe [facility] Analgesi ty to 02-12 Gustine cs adverse 00:00: of reaction 00 Medicin s to e drug Sulfa Propensi Active Itching [facility] Antibiot ty to 02-12 [place]ine ics adverse 00:00: of reaction 00 Medicin s to e drug HYDROMOR DRUG Active ITCHING 2015-02 Univers PHONE INGREDI 02-14 ity of 00:00: [place] 00 [facility] MORPHINE DRUG Active ITCHING 2015-02 Univers INGREDI 0-01 ity of 00:00: [place] 00 [facility] Branch SULFA Drug Active ITCHING 2015-02 Univers (SULFONA Class 0-01 ity of MIDE 00:00: [place] ANTIBIOT 00 Medical ICS) Branch Sulfa Propensi Active Itching 2015-02 Univers (Sulfona ty to 0-01 ity of mide adverse 00:00: [place] Antibiot reaction 00 Medica l ics) s Branch Sulfa Propensi Active Itching Methodi (Sulfona ty to 3 st mide adverse 00:00: Hospita Antibiot reaction 00 l ics) s to drug Sulfa Drug Active Itching [facility] ([facility]ulf[facility] Medical Antibiot 00 Center ics) Sulfamet Propensi Active Itching Metho di hoxazole ty to st - adverse Hospita oprim reaction l s to drug Dilaudid drug Active [facility] allergy [facility] [place] [facility] morphine drug Active [facility] allergy [facility] [place] [facility] Sulfa drug Active Univers Drugs allergy [facility] [place] [facility] Hydromor Propensi Active [facility]ching [facility] adverse Medical reaction Center s Morphine Propensi Active Itching [facility] ty to [facility] adverse Medical reaction Center s Family History Family Member Diagnosis Comments Start Date Stop Date Source Natural father Heart attack [facility] Natural [facility] Natural mother Depression [facility] Natural mother Diabetes [facility] Natural mother Hypertension [facility] Natural mother [facility] Natural mother Migraines [facility] Paternal aunt -Breast cancer MD Parr rson Paternal aunt Endometrial cancer MD [place] Paternal -Genitourinary MD Barbara short grandmother (Bladder, Kidney, Prostate, Testicle) Paternal uncle Testicular cancer MD [place] Unknown Family Family history of Family Uni versity of Member cardiac disorder History [facility] Unknown Family Family history of Family Uni versity of Member diabetes mellitus History [facility] Social History Social Habit Start Date Stop Date Quantity Comments Source Exposure to Not sure [facility]ikh [facility] (event) History [facility] MD [place] Alcohol Frequency History [facility] MD [place] Alcohol Std Drinks History [facility] MD [place] Alcohol Binge Alcohol intake 2020-09-13 2020-09-13 Current drinker MD Anali costa 00:00:00 00:00:00 of alcohol (finding) Tobacco use and 2015-04-27 2015-04-27 Smokeless tobacco MD [place] exposure 00:00:00 00:00:00 non-user History SDID 2015-04-27 2015-04-27 Socially MD [place] Alcohol Comment 00:00:00 00:00:00 [birth year] MD Duarte on 00:00:00 00:00:00 Smoking Status Start Date Stop Date Source Never smoked tobacco [facility] Medications Ordered Filled Start Stop Current Ordering Indication Dosage Frequency Signature Comments Components Source Medication Medication Date Date Medication? Clinician (SIG) Name Name semaglutide 2021- No 1.7mg Q1W Inject 1.7 Methodi (OZEMPIC 1-20 01-[address] SUBQ) 14:51: 00:00 the skin Hospita 20 :00 every 7 l days. magnesium Yes 1{tbl} Q.5D Take 1 Meth cassius oxide,aspar 1-[address] mascorro,citr 14:51: mouth 2 Hospi ta (TRIPLE 15 (two) l MAGNESIUM times a COMPLEX day. ORAL) Lactobac Yes 1{tbl} Q.5D Take 1 Metho di no.41/Bifid 1-[address] obact no.7 14:51: mouth 2 Hosp kemal (PROBIOTIC- 15 (two) l 10 ORAL) times a day. IRON, 2021-0 Yes 65mg QD Take 65 mg Method i CARBONYL 1-[address] ORAL 14:51: daily. Hospita 15 l calcium 2021-0 Yes 2{tbl} QD Take 2 Method i carbonate 1-[address] oyster 14:51: mouth Hospita shell 15 daily. l (OS-SAÚL) 500 mg calcium (1,250 mg) tablet topiramate 2021-0 Yes 1{tbl} QD Take 1 Met hodi (Topamax) 1-[address] 200 MG 14:51: mouth Hospita tablet 15 nightly. l baclofen 0 Yes 5mg Q.5D Take 5 mg Meth cassius (LIORESAL) 1-[address] 10 MG 14:51: (two) Hospita tablet 15 times a l day. clonIDINE 0 Yes 1{patch Q7D Place 1 Me thodi (CATAPRES-T 1-20 } patch on st TS) 0.2 14:51: the skin Hospit a mg/24 hr 15 once a l week. For Hot Flashes BIOTIN ORAL 2021-0 Yes [id number] QD Take Met hodi 1-20 10,[address] 14:51: by mouth Hospita 15 nightly. l loratadine 0 Yes Take by Meth cassisu (CLARITIN) 1-[address] 10 mg 14:51: Hospita tablet 15 l melatonin 0 Yes Take by Metho di 10 mg 1-[address] tablet 14:51: Hospita 15 l cholecalcif 2021-0 Yes 5000U QD Take 5,000 Methodi lara, 1-[address] vitamin D3, 14:51: mouth Hospi ta (VITAMIN D3 15 daily. l ORAL) omeprazole 2021-0 Yes Take by Meth cassius (PriLOSEC) 1-[address] 20 MG 14:51: Hospita capsule 15 l pregabalin 2021-0 Yes 50mg QD Take 50 mg M ethodi (LYRICA) 50 1-[address] MG capsule 14:51: nightly. Hos jimena 15 l duloxetine Yes 90mg QD Take 90 mg M ethodi HCl 1-[address] (DULOXETINE 14:51: daily. Hosp kemal ORAL) 15 l hydromorPHO Yes [id number] 2mg Q.[id number] Take 2 mg Methodi NE 1-20 [id number] by mouth 3 st (DILAUDID) 14:51: 3D (three) Hosp kemal 2 MG tablet 15 times a l day as needed .acute pain. diclofenac Yes 25mg QD Take 25 mg M ethodi (VOLTAREN) 1-[address] 25 MG EC 14:51: nightly. Hospi ta tablet 15 l ondansetron 2021- Yes 4mg Q8H Take 1 Met hodi ODT -14 02-14 tablet (4 st (ZOFRAN-ODT 00:00: 05:59 mg total) Hospita ) 4 MG 00 :00 by mouth l disintegrat every 8 ing tablet (eight) hours as needed for nausea or vomiting for up to 30 days. cephalexin 2021- No 500mg Q.[id number] Take 1 Methodi (Keflex) 1-14 -22 [id number] capsule s t 500 MG 00:00: 05:59 3D (500 mg Hospita capsule 00 :00 total) by l mouth 3 (three) times a day for 7 days. venlafaxine 2020-02- No 1{capsu QD Take 1 Methodi XR (Effexor 03-13 le} capsule by s t XR) 37.5 MG 17:27: 00:00 mouth Hosp kemal 24 hr 53 :00 daily. l capsule ARIPiprazol 2020-02 Yes Take by MD mendez (ABILIFY) 1-11 mouth Anderso 5 mg tablet 11:09: daily. n 04 venlafaxine 2020-02 Yes 150mg Take 150 M D (EFFEXOR-XR 1-11 mg by Anderso ) 75 mg 24 11:09: mouth n hr capsule 04 daily. traZODone 2020-02 Yes 100mg Take 100 MD (DESYREL) 1-11 mg by Anderso 100 mg 11:09: mouth n tablet 04 nightly as needed. multivitami 2020-02 Yes Take by n 1-11 mouth Anderso (multivitam 11:09: daily. n in) tab 04 tablet calcium 2020-02 Yes Take by citrate 250 -11 mouth Anderso mg calcium 11:09: twice n tab 04 daily. cholecalcif 2020-02 Yes 400U Take 400 MD lara, 1-11 Units by Anderso vitamin D3, 11:09: mouth n (VITAMIN 04 daily. D3) 5,000 units tab tablet BIOTIN ORAL 2020-02 Yes 1000U Take 1,000 MD 1-11 Units by Anderso 11:09: mouth. n 04 ferrous 2020-02 Yes 75mg Take 75 mg MD sulfate -11 by mouth. Anderso (IRON ORAL) 11:09: n 04 magnesium 2020-02 Yes 400mg Take 400 MD oxide,aspar 1-11 mg by Anderso mascorro,citr 11:09: mouth n (TRIPLE 04 twice MAGNESIUM daily. COMPLEX ORAL) L.acid/B.bi 2020-02 Yes two times M D fidum/B.ani 1-11 daily. Gerald o mal/FOS 11:09: n (PROBIOTIC 04 COMPLEX ORAL) senna 2020-02 Yes 3{tbl} 3 tablets. (SENOKOT) -11 Anderso 8.6 mg 11:09: n tablet 04 baclofen 5 2020-02 Yes 5mg Take 5 mg MD mg tab -11 by mouth Anderso 11:09: twice n 04 daily. gabapentin 2020-02 Yes 400mg Take 400 MD (NEURONTIN) 1-11 mg by Anderso 400 mg 11:09: mouth at n capsule 04 bedtime. DULoxetine 2020-02 Yes 30mg Take 30 mg M D (CYMBALTA) -11 by mouth Feng so 30 mg 11:09: daily. n capsule 03 Wegovy 1.7 Yes Methodi mg/0.75 mL 9-16 st pen 00:00: Hospita injector 00 l gabapentin 2020- No 300mg Q.[id number] Take 300 Methodi (NEURONTIN) 8-10 08-[id number] 300 mg 15:40: 00:00 3D mouth 3 Hospita capsule 36 :00 (three) l times a day. HYDROcodone 2020- No [id number] 1{tbl} Q6H Take 1 Methodi -acetaminop 8-10 08-[address] hen (NORCO) 15:40: 00:00 mouth Hosp kemal 10-325 mg 30 :00 every 6 l per tablet (six) hours as needed for moderate pain .acute pain. fentaNYL 2020- No [id number] 1{patch Q72H Place 1 M ethodi (DURAGESIC) 8-10 08-10 } patch on st 25 mcg/hr 15:40: 00:00 the skin Hos jimena 22 :00 every l third day .acute pain. coconut oil 2020- No 1{capsu Q.5D Take 1 Methodi 1,000 mg 8-10 08-10 le} capsule by st capsule 15:40: 00:00 mouth 2 Hospit a 15 :00 (two) l times a day. sennosides/ 2020- No 4{tbl} Q.5D Take 4 M ethodi docusate 8-10 08-[address] sodium 15:40: 00:00 mouth 2 Hospita (SENOKOT-S 09 :00 (two) l ORAL) times a day. baclofen 2020- No 10mg Q.5D Take 10 mg Me thodi (LIORESAL) 8-10 08-[address] 10 MG 15:40: 00:00 (two) Hospita tablet 02 :00 times a l day. 1./2 tab BID venlafaxine 2020- No 37.5mg QD Take 37.5 Methodi (EFFEXOR) 8-10 08-[address] 37.5 MG 15:39: 00:00 mouth Hospita tablet 54 :00 daily. l multivitami 2020- No Take by n 8-10 08-10 mouth. Anderso (THERAGRAN) 08:35: 00:00 n tablet 12 :00 citalopram 2020- No 20mg Take 20 mg MD (CeleXA) 40 8-10 08-10 by mouth And erso mg tablet 08:35: 00:00 daily. n 02 :00 tapentadol Yes 50mg Take 50 mg M D (Nucynta) 8 by mouth Gerald o 50 mg 10:13: every 6 n tablet 56 (six) hours as needed. diclofenac 2020- No 1{tbl} Take 1 MD sodium 09-13- tablet by Anderso (VOLTAREN) 10:11: 00:00 mouth n 25 MG EC 36 :00 twice tablet daily. semaglutide Yes Method i , weight 7-29 st loss, 00:00: Hospita (Wegovy) 00 l 0.5 mg/0.5 mL pen injector cloNIDine Yes 1{patch Place 1 MD (CATAPRES-T 7-20 } patch on Keshav rso TS) 0.2 00:00: the skin n mg/24 hr 00 once a transdermal week. patch tamoxifen 2020- No Infiltratin TAKE 1 MD (NOLVADEX) 3- 08-10 g duct TABLET Keshav rso 20 mg 00:00: 00:00 carcinoma DAILY FOR n tablet 00 :00 of areola BREAST of right CANCER female breast venlafaxine 2020- No 1{capsu QD Take 1 Methodi XR (Effexor 04-13 le} capsule by s t XR) 150 MG 00:00: 00:00 mouth Hospi ta 24 hr 00 :00 daily. l capsule tamoxifen Yes Osteopenia 20mg Take 1 MD (NOLVADEX) 2-25 tablet (20 And erso 20 mg 00:00: mg) by n tablet 00 mouth daily. tapentadoL Yes 1{tbl} Q.25D Take 1 Me thodi (Nucynta) 2- tablet by st 50 mg 00:00: mouth Hospita tablet 00 every 6 l (six) hours. HYDROcodone 2020- No 1{tbl} Take 1 M D -acetaminop 2-02 12- tablet by An raymond chambers (NORCO) 00:00: 00:00 mouth n 10 mg-325 00 :00 every 6 mg per (six) tablet hours as needed. Saxenda 3 2020- No ADMINISTER M D mg/0.5 mL 15 08-09 3 MG UNDER And erso (18 mg/3 00:00: 00:00 THE SKIN n mL) pnij 00 :00 DAILY Movantik 25 2020- No as needed. MD mg tab 08 08-10 Anderso 00:00: 00:00 n 00 :00 venlafaxine 2019-02 Yes 37.5mg Take 37.5 MD (EFFEXOR-XR 2-09 mg by Anderso ) 37.5 mg 00:00: mouth n 24 hr 00 every capsule morning. traZODone Yes 100mg QD 100 mg Metho di (DESYREL) 9-[address] 100 MG 00:00: needed. Hospita tablet 00 l sennosides- Yes 3{tbl} Q.5D Take 3 Me thodi docusate 8-[address] sodium 00:00: mouth 2 Hospita (Senokot-S) 00 (two) l 8.6-50 mg times a per tablet day. BELBUCA 900 2020- No 1{film} Apply 1 MD mcg film 02-1717 Film to Anderso 00:00: 00:00 cheek n 00 :00 twice daily. NARCAN 4 Yes MD mg/actuatio 1-12 Anderso n nasal 00:00: n spray 00 tamoxifen 2018-02- No Infiltratin TAKE 1 MD (NOLVADEX) 03-19 08-10 g duct TABLET Keshav rso 20 mg 00:00: 00:00 carcinoma DAILY FOR n tablet 00 :00 of areola BREAST of right CANCER female breast omeprazole 2020- No 40mg Take 40 mg MD (PriLOSEC) 10-02 08-09 by mouth. And erso 40 MG 00:00: 00:00 n capsule 00 :00 ARIPiprazol Yes 5mg QD Take [address] e (ABILIFY) 8-16 by mouth Luke s - 5 MG tablet 13:18: daily. Medi saúl 55 Center multivitami Yes 1{capsu QD Take [address] n capsule 8-16 le} capsule by Luke s - 13:18: mouth Medical 55 daily. Center BIOTIN ORAL Yes 1000U QD Take 1,[address] [address] 8-16 Units by [facility] - 13:18: mouth Medical 55 daily. Center CALCIUM 2019-0 Yes Q.5D Take by [facility] CARBONATE 8-16 mouth 2 [facility] - (CALCIUM 13:18: (two) Medical 500 ORAL) 55 times Center daily. topiramate 2019-0 Yes 200mg QD Take [address] (TOPAMAX) 8-16 mg by [facility] - 200 MG 13:18: mouth Medical tablet 55 nightly . [place] venlafaxine 2018-0 Yes 75mg QD Take [address] (EFFEXOR-XR 8-16 by mouth Luke s - ) 75 MG 24 13:18: daily. Medic al hr capsule 55 [place] gabapentin 0 Yes 400mg QD Take [address] (NEURONTIN) 8-16 mg by [facility] - 400 MG 13:18: mouth Medical capsule 55 nightly. [place] tamoxifen 0 Yes 20mg QD Take [address] (NOLVADEX) 8-16 by mouth [facility] - 20 MG 13:18: daily. Medical tablet 55 [place] tapentadol Yes 100mg Take [address] (NUCYNTA 8-16 mg by [facility] - ER) 50 mg 13:18: mouth Medical Tb12 55 every 12 Center (twelve) hours . omeprazole 2018-0 Yes 40mg QD Take [address] (PRILOSEC) 8-16 by mouth [facility] - 40 MG 13:18: daily. Medical capsule 55 [place] tapentadol 0 Yes 50mg Take [address] (NUCYNTA) 8-16 by mouth [facility] - 50 mg Oral 13:18: every 8 Medi saúl tablet 55 (eight) Center hours as needed. baclofen 5 2019-0 Yes 5mg Q.5D Take [address] mg Tab 8-16 by mouth 2 [facility] - 13:18: (two) Medical 55 times Center daily. traZODone 2018-0 Yes 100mg Take [address] (DESYREL) 8-16 mg by [facility] - 100 MG 13:18: mouth as Medical tablet 55 needed for Center Sleep. citalopram 2018-0 Yes 20mg QD Take [address] (CELEXA) 20 8-16 by mouth Luke s - MG tablet 13:18: nightly. Medi saúl 55 [place] metaxalone 2019-0 Yes 800mg Take 800 [facility] (SKELAXIN) 7-18 mg by Gustine 800 MG 15:48: mouth of tablet 27 daily. Medicin e Iron, Yes 75mg 75 mg at [facility] Ferrous 18 bedtime. [place] Gluconate, 15:48: of 256 (28 FE) 27 Medicin MG TABS e Magnesium Yes 400mg 400 mg at [facility] 100 MG CAPS 18 bedtime. Lisa ege 15:48: of 27 Medicin e Melatonin 3 Yes 10mg Take 10 mg [facility] MG CAPS 18 by mouth Gustine 15:48: nightly as of 27 needed. Medicin e GLYCINE OR Yes Kulwinder 7-18 Gustine 15:48: of 27 Medicin e omeprazole Yes 40mg Take 1 Cap [facility] (PRILOSEC) 4-10 by mouth Colle ge 40 MG 00:00: two times of capsule 00 daily. Medicin Take at e least 30 minutes before breakfast and dinner. Open Capsules. Can take with tsp applesauce Diclofenac Yes 25mg Take 25 mg [facility] Potassium 2-07 by mouth Colleg e (ZIPSOR) 25 19:02: two times o f MG CAPS 55 daily. Medicin e Sennosides Yes 3{tbl} 3 tablets [facility] (SENOKOT 2-07 two times Colleg e OR) 19:02: daily. of 55 Medicin e Multiple 2017-02 Yes Take by [facility] r Vitamin 2-06 mouth Gustine (MULTI-KATERINA 19:14: daily. of MIN DAILY 17 Medicin OR) e Multiple 2017-02 Yes [facility] Vitamin 2-06 [place] (M.V.I. 19:09: of ADULT IV) 51 Medicin e Probiotic 2017-02 Yes two times [place] joe Product 2-06 daily. [place] (PROBIOTIC 19:09: of DAILY OR) 51 Medicin e FLECTOR 1.3 Yes [facility] % PTCH 10-26 [place] 00:00: of 00 Medicin e Tapentadol Yes 100mg Take 100 [facility] HCl 9-21 mg by [place] (NUCYNTA ER 00:00: mouth two o f OR) 00 times Medicin daily. e baclofen Yes 5mg Take 5 mg [facility] (LIORESAL) 9-21 by mouth 3 Col lege 10 MG 00:00: times of tablet 00 daily. Medicin e topiramate 2018-0 Yes 200mg 200 mg at [facility] (TOPAMAX) 08-17 bedtime. Colleg e 200 MG 13:07: of tablet 56 Medicin e aripiprazol 2018-0 Yes 5mg 5 mg Kulwinder e (ABILIFY) 7 daily. Colleg e 5 MG tablet 13:07: of 56 Medicin e citalopram 20180 Yes 20mg Take 20 mg [facility] (CELEXA) 20 08-17 by mouth Lisa ege MG tablet 13:07: daily. of 56 Medicin e venlafaxine 20180 Yes 75mg Take 75 mg Kulwinder (EFFEXOR 08-17 by mouth Gustine XR) 75 MG 13:07: daily. of XR capsule 56 Medicin e Tapentadol 0 Yes 50mg 50 mg two [facility] HCl 08-17 times [place] (NUCYNTA) 13:07: daily. of 50 MG TABS 56 Medicin e tamoxifen 0 Yes 20mg Take 20 mg [facility] (NOLVADEX) 08-17 by mouth Colle ge 20 MG 13:07: daily. of tablet 56 Medicin e trazodone 0 Yes 100mg Take 100 [place] joe (DESYREL) 08-17 mg by Gustine 100 MG 13:07: mouth at of tablet 56 bedtime. Medicin e B Complex-C 2018-0 Yes [facility] (SUPER B 08-17 College COMPLEX OR) 13:07: of 56 Medicin e Calcium 2018-0 Yes [facility] Citrate-Vit 08-17 Gustine logan D 13:07: of (CALCIUM + 56 Medicin D OR) e Lactobacill 2018-0 Yes [facility] us-Inulin 08-17 College (PROBIOTIC 13:07: of DIGESTIVE 56 Medicin SUPPORT OR) e docusate 20180 Yes 100mg Take 100 [facility] sodium 7-13 mg by College (COLACE) 13:07: mouth of 100 MG 56 daily as Medicin capsule needed for e Constipati on. Loratadine 20180 Yes 10mg Take 10 mg [facility] (CLARITIN) 13 by mouth Colle ge 10 MG CAPS 13:07: at of 56 bedtime. Medicin e Biotin 2018-0 Yes [id number] Take [facility] [id number] MCG - 10,000 mcg Lisa ege TABS 13:07: by mouth of 56 every Medicin morning. e Calcium Yes 500mg Take 500 [facility] Citrate-Vit 7-13 mg by College logan D 13:07: mouth of 500-400 56 every Medicin MG-UNIT morning. e CHEW Cholecalcif Yes [facility] lara 08-17 College (VITAMIN 13:07: of D3) 3000 56 Medicin UNITS TABS e L-METHIONIN Yes [facility] E OR 08-17 College 13:07: of 56 Medicin e NUCYNTA ER 2020- No 100mg Take 100 M D 50 mg 12 hr 4-23 08-10 mg by Gerald o tablet 00:00: 00:00 mouth n 00 :00 daily. Nightly gabapentin 2016-02 Yes 400mg Take 400 [facility] (NEURONTIN) 2-15 mg by Gustine 400 MG 00:00: mouth at of capsule 00 bedtime. Medicin e gabapentin 2016-02- No 1{capsu QD Take 1 M ethodi (NEURONTIN) 2-15 02-18 le} capsule by s t 400 mg 00:00: 00:00 mouth Hospita capsule 00 :00 nightly. l topiramate Yes 200mg Take 200 MD (TOPAMAX) 6-06 mg by Anderso 100 mg 00:00: mouth at n tablet 00 bedtime. Polyethylen Yes 17g Take 17 g U nivers e Glycol 5-22 by mouth. ity of 3350 18:51: [place] (MIRALAX) 55 Medical 17 gram Branch powder clonazePAM Yes .5mg Take 0.5 Uni vers (KLONOPIN) 5-22 mg by ity of 0.5 mg 18:51: mouth as [place] tablet 55 needed. Medical Branch CYANOCOBALA Yes 2500mg Place Uni vers MIN/COBAMAM 5-22 2,500 mg ity [place] (B12 18:[place] tongue. [facility] Polyethylen Yes 17g Take 17 g U nivers e Glycol 5-22 by mouth. ity of 3350 18:51: [place] (MIRALAX) 55 Medical 17 gram Branch powder clonazePAM Yes .5mg Take 0.5 Uni vers (KLONOPIN) 5-22 mg by ity of 0.5 mg 18:51: mouth as [place] tablet 55 needed. Medical Branch CYANOCOBALA [address] Uni vers MIN/COBAMAM 5-22 2,500 mg ity of [place] (B12 18:[place] 55 tongue. [facility] Branch Polyethylen 2017 Yes 17g Take 17 g U nivers e Glycol -22 by mouth. ity of 3350 18:51: [place] (MIRALAX) 55 Medical 17 gram Branch powder clonazePAM 2017 Yes .5mg Take 0.5 Uni vers (KLONOPIN) 5-22 mg by ity of 0.5 mg 18:51: mouth as [place] tablet 55 needed. Medical Branch CYANOCOBALA Yes 2500mg Place Uni vers MIN/COBAMAM 5-22 2,500 mg ity of [place] (B12 18:[place]: [place] 55 tongue. [facility] Branch tamoxifen Yes 20mg Take 20 mg Un cristel (NOLVADEX) 5-22 by mouth. ity of 20 mg 18:51: [place] tablet 54 Medical Branch traZODONE Yes 100mg Take 100 Uni vers (DESYREL) 5-22 mg by ity of 100 mg 18:51: mouth. [place] tablet 54 Medical Branch venlafaxine Yes 75mg Take 75 mg Univers XR (EFFEXOR - by mouth. ity of XR) 75 mg 18:51: [place] 24 hr 54 Medical capsule Branch cyanocobala Yes Take by Un cristel min, 5-22 mouth. ity of vitamin 18:51: [place] B-12, 1,500 54 Medical mcg TbDL Branch MAGNESIUM 2017 Yes Take by [facility] ers OXIDE/MAGNE 5-22 mouth. ity of SIUM 18:51: [place] (MAGNESIUM, 54 Medical OXIDE/AA Branch CHELATE, ORAL) VITAMIN B 20170 Yes Take by Univ ers COMPLEX VIT 5-22 mouth. ity of C NO.4 18:51: [place] (SUPER B 54 Medical COMPLEX + C Branch ORAL) BACILLUS 20170 Yes [facility] COAGULANS 5-22 mouth. ity of (PROBIOTIC, 18:51: [place] B. 54 Medical COAGULANS, Branch ORAL) SENNOSIDES 2017 Yes Take by Uni vers (SENOKOT 5-22 mouth. ity of ORAL) 18:51: [address] Branch DOCUSATE Yes Take by Unive rs SODIUM -22 mouth 2 ity of (COLACE 18:51: (two) [place] ORAL) 54 times Medical daily. Branch Lidocaine 5 Yes Apply to U nivers % cream -22 area(s). ity of 18:51: [address] traMADOL 50 Yes 50mg Take 50 mg Univers mg tablet -22 by mouth ity of 18:51: every 6 [place] [address] (six) Medical hours as Branch needed. loratadine 2017 Yes 10mg Take 10 mg U nivers (CLARITIN) -22 by mouth ity o f 10 mg 18:51: daily. [address] Branch gabapentin Yes 300mg Take 300 Un cristel 300 mg 5-22 mg by ity of capsule 18:51: mouth [place] [address] daily. Medical Branch gabapentin 2017 Yes 400mg Take 400 Un cristel 400 mg 5-22 mg by ity of capsule 18:51: mouth [place] [address] every Medical evening. Branch OMEPRAZOLE Yes Take by Uni vers (PRILOSEC 5-22 mouth. ity of ORAL) 18:51: [address] ARIPiprazol 0 Yes 5mg Take 5 mg U nivers e (ABILIFY) -22 by mouth. ity of 5 mg tablet 18:51: [address] Biotin 10 Yes 1000U Take 1,000 U nivers mg Tab 5-22 Units by ity of 18:51: mouth. [address] calcium 20170 Yes 5000U Take 5,000 Uni vers citrate 5-22 Units by ity of (CITRACAL) 18:51: mouth. [place] 200 mg (950 54 Medical mg) tablet Branch citalopram 0 Yes 20mg Take 20 mg U nivers (CELEXA) 20 5-22 by mouth. ity of mg tablet 18:51: [address] Branch Diclofenac 2017-0 Yes 25mg Take 25 mg U nivers Potassium 5-22 by mouth 2 ity of (ZIPSOR) 25 18:51: (two) [place] mg Cap 54 times Medical daily. Branch multivitami 2017 Yes 1{capsu Take 1 U nivers n capsule 06-26 le} capsule by ity of 18:51: mouth. [place] [address] Medical Branch Cholecalcif 0 Yes 400U Take 400 Un cristel lara, - Units by ity of Vitamin D3, 18:51: [place]. [place] (VIT[place]IN 54 Medical D3) 5,000 Branch unit tablet tamoxifen Yes 20mg Take 20 mg Un cristel (NOLVADEX) 06-26 by mouth. ity of 20 mg 18:51: [place] tablet Medical Branch traZODONE Yes 100mg Take 100 Uni vers (DESYREL) - mg by ity of 100 mg 18:51: mouth. [place] tablet Medical Branch venlafaxine Yes 75mg Take 75 mg Univers XR (EFFEXOR 06-26 by mouth. ity of XR) 75 mg 18:51: [place] 24 hr Medical capsule Branch cyanocobala Yes Take by Un cristel min, 06-26 mouth. ity of vitamin 18:51: [place] B-12, 1,500 54 Medical mcg TbDL Branch MAGNESIUM Yes Take by Univ ers OXIDE/MAGNE 06-26 mouth. ity of SIUM 18:51: [place] (MAGNESIUM, 54 Medical OXIDE/AA Branch CHELATE, ORAL) VITAMIN B Yes Take by Univ ers COMPLEX VIT 06-26 mouth. ity of C NO.4 18:51: [place] (SUPER B 54 Medical COMPLEX + C Branch ORAL) BACILLUS 20170 Yes Take by Unive rs COAGULANS 06-26 mouth. ity of (PROBIOTIC, 18:51: [place] B. 54 Medical COAGULANS, Branch ORAL) SENNOSIDES 2017 Yes Take by Uni vers (SENOKOT 06-26 mouth. ity of ORAL) 18:51: [place] [address] Medical Branch DOCUSATE 0 Yes Take by Unive rs SODIUM 06-26 mouth 2 ity of (COLACE 18:51: (two) [place] ORAL) 54 times Medical daily. Branch Lidocaine 5 Yes Apply to U nivers % cream 06-26 area(s). ity of 18:51: [address] Branch traMADOL 50 2016-0 Yes 50mg Take 50 mg Univers mg tablet 5-22 by mouth ity of 18:51: every 6 [place] [address] (six) Medical hours as Branch needed. loratadine 2017 Yes 10mg Take 10 mg U nivers (CLARITIN) 5-22 by mouth ity o f 10 mg 18:51: daily. [place] [address] Medical Branch gabapentin 2017 Yes 300mg Take 300 Un cristel 300 mg 5-22 mg by ity of capsule 18:51: mouth [place] [address] daily. Medical Branch gabapentin 2017 Yes 400mg Take 400 Un cristel 400 mg 5-22 mg by ity of capsule 18:51: mouth [place] [address] every Medical evening. Branch OMEPRAZOLE 2017 Yes Take by Uni vers (PRILOSEC 5-22 mouth. ity of ORAL) 18:51: [address] ARIPiprazol 2017 Yes 5mg Take 5 mg U nivers e (ABILIFY) 5-22 by mouth. ity of 5 mg tablet 18:51: [address] Biotin 10 Yes 1000U Take 1,000 U nivers mg Tab 5-22 Units by ity of 18:51: mouth. [address] calcium 2017 Yes 5000U Take 5,000 Uni vers citrate 5-22 Units by ity of (CITRACAL) 18:51: mouth. [place] 200 mg (950 54 Medical mg) tablet Branch citalopram Yes 20mg Take 20 mg U nivers (CELEXA) 20 5-22 by mouth. ity of mg tablet 18:51: [address] Diclofenac Yes 25mg Take 25 mg U nivers Potassium 5-22 by mouth 2 ity of (ZIPSOR) 25 18:51: (two) [place] mg Cap 54 times Medical daily. Branch multivitami 20170 Yes 1{capsu Take 1 U nivers n capsule 5-22 le} capsule by ity of 18:51: mouth. [address] Cholecalcif [address] Yes 400U Take 400 Un cristel lara, 5-22 Units by ity of Vitamin D3, 18:51: [place]. [place] (VITAMIN 54 Medical D3) 5,000 Branch unit tablet tamoxifen 2017- Yes 20mg Take 20 mg Un cristel (NOLVADEX) 5-22 by mouth. ity of 20 mg 18:51: [address] traZODONE 2017-0 Yes 100mg Take 100 Uni vers (DESYREL) 5-22 mg by ity of 100 mg 18:51: mouth. [place] tablet 54 Medical Branch venlafaxine Yes 75mg Take 75 mg Univers XR (EFFEXOR - by mouth. ity of XR) 75 mg 18:51: [place] 24 hr 54 Medical capsule Branch cyanocobala Yes Take by Un cristel min, 06-26 mouth. ity of vitamin 18:51: [place] B-12, 1,500 54 Medical mcg TbDL Branch MAGNESIUM Yes Take by Univ ers OXIDE/MAGNE - mouth. ity of SIUM 18:51: [place] (MAGNESIUM, 54 Medical OXIDE/AA Branch CHELATE, ORAL) VITAMIN B Yes Take by Univ ers COMPLEX VIT 06-26 mouth. ity of C NO.4 18:51: [place] (SUPER B 54 Medical COMPLEX + C Branch ORAL) BACILLUS Yes Take by Unive rs COAGULANS - mouth. ity of (PROBIOTIC, 18:51: [place] B. 54 Medical COAGULANS, Branch ORAL) SENNOSIDES Yes Take by Uni vers (SENOKOT - mouth. ity of ORAL) 18:51: [place] 54 Medical Branch DOCUSATE 0 Yes Take by Unive rs SODIUM - mouth 2 ity of (COLACE 18:51: (two) [place] ORAL) 54 times Medical daily. Branch Lidocaine 5 Yes Apply to U nivers % cream 06-26 area(s). ity of 18:51: [place] [address] Medical Branch traMADOL 50 Yes 50mg Take 50 mg Univers mg tablet - by mouth ity of 18:51: every 6 [place] 54 (six) Medical hours as Branch needed. loratadine 2017 Yes 10mg Take 10 mg U nivers (CLARITIN) - by mouth ity o f 10 mg 18:51: daily. [place] tablet 54 Medical Branch gabapentin 2017 Yes 300mg Take 300 Un cristel 300 mg 5-22 mg by ity of capsule 18:51: mouth [place] 54 daily. Medical Branch gabapentin 2017 Yes 400mg Take 400 Un cristel 400 mg 5-22 mg by ity of capsule 18:51: mouth [place] 54 every Medical evening. Branch OMEPRAZOLE 20170 Yes Take by Uni vers (PRILOSEC 5-22 mouth. ity of ORAL) 18:51: [address] ARIPiprazol Yes 5mg Take 5 mg U nivers e (ABILIFY) 5-22 by mouth. ity of 5 mg tablet 18:51: [address] Biotin 10 Yes 1000U Take 1,000 U nivers mg Tab 5-22 Units by ity of 18:51: mouth. [address] calcium Yes 5000U Take 5,000 Uni vers citrate 5-22 Units by ity of (CITRACAL) 18:51: mouth. [place] 200 mg (950 54 Medical mg) tablet Branch citalopram Yes 20mg Take 20 mg U nivers (CELEXA) 20 -22 by mouth. ity of mg tablet 18:51: [address] Diclofenac Yes 25mg Take 25 mg U nivers Potassium 5-22 by mouth 2 ity of (ZIPSOR) 25 18:51: (two) [place] mg Cap 54 times Medical daily. Branch multivitami 2017 Yes 1{capsu Take 1 U nivers n capsule 5-22 le} capsule by ity of 18:51: mouth. [address] Cholecalcif Yes 400U Take 400 Un cristel lara, 5-22 Units by ity of Vitamin D3, 18:51: [place]. [place] (VITAMIN 54 Medical D3) 5,000 Branch unit tablet Calcium [facility]-22 mouth. ity of [place] D3 250 18:47: [place] mg calcium- 20 Medical 200 unit Branch Tab Calcium Yes Take by Univer s Citrate-Vit 5-22 mouth. ity of [place] D3 250 18:47: [place] mg calcium- 20 Medical 200 unit Branch Tab Calcium Yes [facility] Cit[facility]-Vit 5-22 mouth. ity of [place] D3 250 18:47: [place] mg calcium- 20 Medical 200 unit Branch Tab Polyethylen 2017 Yes 17g Take 17 g U nivers e Glycol 5-22 by mouth. ity of 3350 13:51: [place] (MIRALAX) 55 Medical 17 gram Branch powder clonazePAM Yes .5mg Take 0.5 Uni vers (KLONOPIN) 5-22 mg by ity of 0.5 mg 13:51: mouth as [place] tablet 55 needed. Medical Branch CYANOCOBALA [address] Uni vers MIN/COBAMAM 5-22 2,500 mg ity of [place] (B12 13:51: [place] 55 tongue. Medical Branch Polyethylen 2017 Yes 17g Take 17 g U nivers e Glycol 5-22 by mouth. ity of 3350 13:51: [place] (MIRALAX) 55 Medical 17 gram Branch powder clonazePAM 2017-0 Yes .5mg Take 0.5 Uni vers (KLONOPIN) 5-22 mg by ity of 0.5 mg 13:51: mouth as [place] tablet 55 needed. Medical Branch CYANOCOBALA [address] Uni vers MIN/COBAMAM 5-22 2,500 mg ity of [place] (B12 13:51: [place] 55 tongue. Medical Branch OMEPRAZOLE Yes Take by Uni vers (PRILOSEC 5-22 mouth. ity of ORAL) 13:51: [address] ARIPiprazol Yes 5mg Take 5 mg U nivers e (ABILIFY) 5-22 by mouth. ity of 5 mg tablet 13:51: [address] Biotin 10 Yes 1000U Take 1,000 U nivers mg Tab 5-22 Units by ity of 13:51: mouth. [address] calcium 2017 Yes 5000U Take 5,000 Uni vers citrate 5-22 Units by ity of (CITRACAL) 13:51: mouth. [place] 200 mg (950 54 Medical mg) tablet Branch citalopram 2017 Yes 20mg Take 20 mg U nivers (CELEXA) 20 5-22 by mouth. ity of mg tablet 13:51: [address] Diclofenac 2017 Yes 25mg Take 25 mg U nivers Potassium 5-22 by mouth 2 ity of (ZIPSOR) 25 13:51: (two) [place] mg Cap 54 times Medical daily. Branch multivitami [address]70 Yes 1{capsu Take 1 U nivers n capsule 5-22 le} capsule by ity of 13:51: mouth. [address] Cholecalcif 2017-0 Yes 400U Take 400 Un cristel lara, - Units by ity of Vitamin D3, 13:51: [place]. [place] (VITAMIN 54 Medical D3) 5,000 Branch unit tablet tamoxifen Yes 20mg Take 20 mg Un cristel (NOLVADEX) 06-26 by mouth. ity of 20 mg 13:51: [place] tablet 54 Medical Branch traZODONE Yes 100mg Take 100 Uni vers (DESYREL) - mg by ity of 100 mg 13:51: mouth. [place] tablet 54 Medical Branch venlafaxine Yes 75mg Take 75 mg Univers XR (EFFEXOR 06-26 by mouth. ity of XR) 75 mg 13:51: [place] 24 hr 54 Medical capsule Branch cyanocobala Yes Take by Un cristel min, 06-26 mouth. ity of vitamin 13:51: [place] B-12, 1,500 54 Medical mcg TbDL Branch MAGNESIUM Yes Take by Univ ers OXIDE/MAGNE 06-26 mouth. ity of SIUM 13:51: [place] (MAGNESIUM, 54 Medical OXIDE/AA Branch CHELATE, ORAL) VITAMIN B Yes Take by Univ ers COMPLEX VIT 06-26 mouth. ity of C NO.4 13:51: [place] (SUPER B 54 Medical COMPLEX + C Branch ORAL) BACILLUS Yes Take by Unive rs COAGULANS 06-26 mouth. ity of (PROBIOTIC, 13:51: [place] B. 54 Medical COAGULANS, Branch ORAL) SENNOSIDES Yes Take by Uni vers (SENOKOT 06-26 mouth. ity of ORAL) 13:51: [place] [address] Medical Branch DOCUSATE Yes Take by Unive rs SODIUM 06-26 mouth 2 ity of (COLACE 13:51: (two) [place] ORAL) 54 times Medical daily. Branch Lidocaine 5 Yes Apply to U nivers % cream 06-26 area(s). ity of 13:51: [place] [address] Medical Branch traMADOL 50 Yes 50mg Take 50 mg Univers mg tablet 06-26 by mouth ity of 13:51: every 6 [place] [address] (six) Medical hours as Branch needed. loratadine Yes 10mg Take 10 mg U nivers (CLARITIN) 06-26 by mouth ity o f 10 mg 13:51: daily. [address] gabapentin 2017 Yes 300mg Take 300 Un cristel 300 mg 5-22 mg by ity of capsule 13:51: mouth [place] daily. Medical Branch gabapentin 2017 Yes 400mg Take 400 Un cristel 400 mg 5-22 mg by ity of capsule 13:51: mouth [place] [address] every Medical evening. Branch OMEPRAZOLE 2017 Yes Take by Uni vers (PRILOSEC 5-22 mouth. ity of ORAL) 13:51: [address] ARIPiprazol 2017 Yes 5mg Take 5 mg U nivers e (ABILIFY) 5-22 by mouth. ity of 5 mg tablet 13:51: [address] Biotin 10 Yes 1000U Take 1,000 U nivers mg Tab 5-22 Units by ity of 13:51: mouth. [address] calcium Yes 5000U Take 5,000 Uni vers citrate 5-22 Units by ity of (CITRACAL) 13:51: mouth. [place] 200 mg (950 54 Medical mg) tablet Branch citalopram Yes 20mg Take 20 mg U nivers (CELEXA) 20 5-22 by mouth. ity of mg tablet 13:51: [address] Diclofenac Yes 25mg Take 25 mg U nivers Potassium 5-22 by mouth 2 ity of (ZIPSOR) 25 13:51: (two) [place] mg Cap 54 times Medical daily. Branch multivitami Yes 1{capsu Take 1 U nivers n capsule 5-22 le} capsule by ity of 13:51: mouth. [address] Cholecalcif Yes 400U Take 400 Un cristel lara, 5-22 Units by ity of Vitamin D3, 13:51: [facility] Medical D3) 5,000 Branch unit tablet tamoxifen 2017 Yes 20mg Take 20 mg Un cristel (NOLVADEX) 5-22 by mouth. ity of 20 mg 13:51: [address] traZODONE Yes 100mg Take 100 Uni vers (DESYREL) 5-22 mg by ity of 100 mg 13:51: mouth. [place] [address] Medical [place] venlafaxine Yes 75mg Take 75 mg Univers XR (EFFEXOR - by mouth. ity of XR) 75 mg 13:51: [place] 24 hr 54 Medical capsule Branch cyanocobala 2016-0 Yes Take by Un cristel min, - mouth. ity of vitamin 13:51: [place] B-12, 1,500 54 Medical mcg TbDL Branch MAGNESIUM 2017-0 Yes Take by Univ ers OXIDE/MAGNE - mouth. ity of SIUM 13:51: [place] (MAGNESIUM, 54 Medical OXIDE/AA Branch CHELATE, ORAL) VITAMIN B 2017-0 Yes Take by Univ ers COMPLEX VIT - mouth. ity of C NO.4 13:51: [place] (SUPER B 54 Medical COMPLEX + C Branch ORAL) BACILLUS 2017-0 Yes Take by Unive rs COAGULANS - mouth. ity of (PROBIOTIC, 13:51: [place] B. 54 Medical COAGULANS, Branch ORAL) SENNOSIDES 2017 Yes Take by Uni vers (SENOKOT - mouth. ity of ORAL) 13:51: [place] [address] Medical Branch DOCUSATE 0 Yes [facility] - mouth 2 ity of (COLACE 13:51: (two) [place] ORAL) 54 times Medical daily. Branch Lidocaine 5 Yes Apply to U nivers % cream 06-26 area(s). ity of 13:51: [place] [address] Medical Branch traMADOL 50 2017-0 Yes 50mg Take 50 mg Univers mg tablet 06-26 by mouth ity of 13:51: every 6 [place] [address] (six) Medical hours as Branch needed. loratadine 2016- Yes 10mg Take 10 mg U nivers (CLARITIN) 06-26 by mouth ity o f 10 mg 13:51: daily. [place] tablet 54 Medical Branch gabapentin 2017-0 Yes 300mg Take 300 Un cristel 300 mg 5-22 mg by ity of capsule 13:51: mouth [place] 54 daily. Medical Branch gabapentin 2017-0 Yes 400mg Take 400 Un cristel 400 mg 5-22 mg by ity of capsule 13:51: mouth [place] 54 every Medical evening. Branch Calcium 20170 Yes Take by Univer s Citrate-Vit - mouth. ity of [place] D3 250 13:47: [place] mg calcium- 20 Medical 200 unit Branch Tab Calcium 0 Yes Take by Univer s Citrate-Vit 5-22 mouth. ity of [place] D3 250 13:47: [place] mg calcium- 20 Medical 200 unit Branch Tab metaxalone Yes 2 (two) Univ ers 800 mg 3-29 times ity of tablet 00:00: daily with [place] 00 meals. Medical Branch metaxalone Yes 2 (two) Univ ers 800 mg 3-29 times ity of tablet 00:00: daily with [place] 00 meals. Medical Branch metaxalone Yes 2 (two) Univ ers 800 mg 3-29 times ity of tablet 00:00: daily with [place] 00 meals. Medical Branch metaxalone Yes 2 (two) Univ ers 800 mg 3-29 times ity of tablet 00:00: daily with [place] 00 meals. Medical Branch metaxalone Yes 2 (two) Univ ers 800 mg 3-29 times ity of tablet 00:00: daily with [place] 00 meals. Medical Branch tamoxifen Yes 20mg QD Take 20 mg Me thodi (NOLVADEX) 1-[address] 20 MG chemo 00:00: nightly. [facility] tablet 00 l topiramate 2015-02- No 200mg QD Take 200 M ethodi 200 mg 2-31 08-[address] capsule,ext 00:00: 00:00 mouth [facility] ended 00 :00 nightly. l release 24hr ARIPiprazol 2015-02 Yes 5mg QD Take 5 mg M ethodi e (ABILIFY) 1-[address] 5 MG tablet 00:00: daily. [facility] 00 l venlafaxine 2015-02- No 75mg QD Take 75 mg Methodi XR 1-14 08-[address] (EFFEXOR-XR 00:00: 00:00 daily. Hos jimena ) 75 MG 24 00 :00 l hr capsule traZODone 2015-02- No 100mg QD Take 100 Me [facility] (DESYREL) 1-14 08-[address] 100 MG 00:00: 00:00 mouth [facility] tablet 00 :00 nightly as l needed. 50 - 100 mg pm / prn hydrocortis 2015-02 Yes Insert Univ ers one-pramoxi 1-10 into ity of ne 00:00: rectum 2 [place] (ANALPRAM-H 00 (two) Medical C) 2.5-1 % times Branch rectal daily. cream hydrocortis 2015-02 Yes Insert Univ ers one-pramoxi 1-10 into ity of ne 00:00: rectum 2 [place] (ANALPRAM-H 00 (two) Medical C) 2.5-1 % times Branch rectal daily. cream hydrocortis 2015-02 Yes Insert Univ ers one-pramoxi 1-10 into ity of ne 00:00: rectum 2 [place] (ANALPRAM-H 00 (two) Medical C) 2.5-1 % times Branch rectal daily. cream hydrocortis 2015-02 Yes Insert Univ ers one-pramoxi 1-10 into ity of ne 00:00: rectum 2 [place] (ANALPRAM-H 00 (two) Medical C) 2.5-1 % times Branch rectal daily. cream hydrocortis 2015-02 Yes Insert Univ ers one-pramoxi 1-10 into ity of ne 00:00: rectum 2 [place] (ANALPRAM-H 00 (two) Medical C) 2.5-1 % times Branch rectal daily. cream hydrocortis 2015-02 Yes Insert Univ ers one-pramoxi 1-10 into ity of ne 00:00: rectum 2 [place] (ANALPRAM-H 00 (two) Medical C) 2.5-1 % times Branch rectal daily. cream hydrocortis 2015-02 Yes Insert Univ ers one-pramoxi 1-10 into ity of ne 00:00: rectum 2 [place] (ANALPRAM-H 00 (two) Medical C) 2.5-1 % times Branch rectal daily. cream hydrocortis 2015-02 Yes Insert Univ ers one-pramoxi 1-10 into ity of ne 00:00: rectum 2 [place] (ANALPRAM-H 00 (two) Medical C) 2.5-1 % times Branch rectal daily. cream hydrocortis 2015-02 Yes Insert Univ ers one-pramoxi 1-10 into ity of ne 00:00: rectum 2 [place] (ANALPRAM-H 00 (two) Medical C) 2.5-1 % times Branch rectal daily. cream hydrocortis 2015-02 Yes Insert Univ ers one-pramoxi 1-10 into ity of ne 00:00: rectum 2 [place] (ANALPRAM-H 00 (two) Medical C) 2.5-1 % times Branch rectal daily. cream topiramate 2015-02 Yes 1.5{tbl Take 1.5 Univers (TOPAMAX) 0-25 } tablets by ity of 100 mg 00:00: mouth [place] tablet 00 daily. Medical Branch topiramate 2015-02 Yes 1.5{tbl Take 1.5 Univers (TOPAMAX) 0-25 } tablets by ity of 100 mg 00:00: mouth [place] tablet 00 daily. Medical Branch topiramate 2015-02 Yes 1.5{tbl Take 1.5 Univers (TOPAMAX) 0-25 } tablets by ity of 100 mg 00:00: mouth [place] tablet 00 daily. Medical Branch topiramate 2015-02 Yes 1.5{tbl Take 1.5 Univers (TOPAMAX) 0-25 } tablets by ity of 100 mg 00:00: mouth [place] tablet 00 daily. Medical Branch topiramate 2015-02 Yes 1.5{tbl Take 1.5 Univers (TOPAMAX) 0-25 } tablets by ity of 100 mg 00:00: mouth [place] tablet 00 daily. Medical Branch docusate 2015-02 Yes 100mg Q.5D Take 100 Meth [facility] sodium 0-[address] (COLACE) 00:00: mouth 2 Hospit a 100 MG 00 (two) l capsule times a day. 2 caps BID docusate 2015-02 Yes 100mg Take 100 MD sodium 0-01 mg by Anderso (COLACE) 00:00: mouth. n 100 mg 00 capsule melatonin 5 Yes 10mg Take 10 mg MD mg tab 4-15 by mouth [facility] tablet 00:00: at n 00 bedtime. citalopram 2020- No 20mg QD Take 20 mg [facility] (CeleXA) 20 4-15 08-[address] MG tablet 00:00: 00:00 nightly. Hos jimena 00 :00 l calcium 2020- No 1{tbl} QD Take 1 Metho di citrate 250 3-15 08-[address] mg calcium 00:00: 00:00 mouth Hospi ta tablet 00 :00 daily. l multivitami Yes 1{tbl} QD Take 1 Me thodi n 1-[address] (THERAGRAN) 00:00: mouth [facility]pi ta tablet 00 daily. l Melatonin Melatonin Yes Unive rs TABS TABS [facility]y of [place] [facility] Vitamin D3 Vitamin D3 Yes Uni vers TABS TABS ity of [place] [facility] Iron TABS Iron TABS Yes Unive rs ity of [place] [facility] Biotin CAPS Biotin CAPS Yes U nivers ity of [place] [facility] Docusate Docusate Yes Univers Sodium 100 Sodium 100 ity of MG Oral MG Oral [place] Capsule Capsule [facility] Upsala 3 [place] 3 Yes Univers CAPS CAPS ity of [place] [facility] Calcium Calcium Yes Univers Citrate Citrate ity of CAPS CAPS [place] [facility] Probiotic Probiotic Yes Unive rs CAPS CAPS ity of [place] [facility] Gabapentin Gabapentin Yes Uni vers CAPS CAPS ity of [place] [facility] Zipsor CAPS Zipsor CAPS Yes U nivers ity of [place] [facility] Abilify Abilify Yes Univers TABS TABS ity of [place] [facility] CeleXA TABS CeleXA TABS Yes U nivers ity of [place] [facility] Effexor Effexor Yes Univers TABS TABS ity of [place] [facility] TraZODone TraZODone Yes Unive rs HCl TABS HCl TABS ity of [place] [facility] Topamax 200 Topamax 200 Yes U nivers MG Oral MG Oral ity of Tablet Tablet [place] [facility] Tamoxifen Tamoxifen Yes Unive rs Citrate 20 Citrate 20 ity of MG Oral MG Oral [place] Tablet Tablet Phys[facility] ans PriLOSEC PriLOSEC Yes Univers CPDR CPDR ity of [place] [facility] Senokot S Senokot S Yes Unive rs TABS TABS ity of [place] [facility] Claritin Claritin Yes Univers TABS TABS ity of [place] [facility] Immunizations Ordered Filled Immunization Date Status Comments Sour e Immunization Name Name SARS-COV-2 COVID-19 2020-02-25 Completed Unive rsity of PFIZER VACCINE 00:00:00 [facility] [place] [facility] SARS-COV-2 COVID-19 2020-02-25 Completed Unive rsity of PFIZER VACCINE 00:00:00 [facility] [place] [facility] SARS-COV-2 COVID-19 2020-02-25 Completed Unive rsity of PFIZER VACCINE 00:00:00 [facility] [place] [facility] SARS-COV-2 COVID-19 2020-02-25 Completed Unive rsity of PFIZER VACCINE 00:00:00 [facility] [place] [facility] SARS-COV-2 COVID-19 2020-02-25 Completed Unive rsity of PFIZER VACCINE 00:00:00 [facility] [place] [facility] SARS-COV-2 COVID-19 2020-02-03 Completed Unive rsity of PFIZER VACCINE 00:00:00 [facility] [place] [facility] SARS-COV-2 COVID-19 2020-02-03 Completed Unive rsity of PFIZER VACCINE 00:00:00 [facility] [place] [facility] SARS-COV-2 COVID-19 2020-02-03 Completed Unive rsity of PFIZER VACCINE 00:00:00 [facility] [place] [facility] SARS-COV-2 COVID-19 2020-02-03 Completed Unive rsity of PFIZER VACCINE 00:00:00 [facility] [place] [facility] SARS-COV-2 COVID-19 2020-02-03 Completed Unive rsity of PFIZER VACCINE 00:00:00 [facility] [place] [facility] Vital Signs Vital Name Observation Time Observation Value Comments Source Body height 2021-02-24 20:48:00 160 cm [facility] Body weight 2021-02-24 20:48:00 65.772 kg [facility] BMI 2021-02-24 20:48:00 25.69 kg/m2 [facility] Systolic blood 2021-02-18 21:10:00 114 mm[Hg] [facility] pressure Diastolic blood 2021-02-18 21:10:00 58 mm[Hg] [facility] pressure Heart rate 2021-02-18 21:10:00 99 /min [facility] Body temperature 2021-02-18 21:10:00 36.67 [facility] Respiratory rate 2021-02-18 21:10:00 15 /min [facility] Oxygen saturation in 2021-02-18 21:10:00 98 /min [facility] Arterial blood by Pulse oximetry Body height 2021-01-14 15:35:00 160 cm MD Toney son Body weight 2021-01-14 15:35:00 67.7 kg MD Toney son BMI 2021-01-14 15:35:00 26.45 kg/m2 MD Toney son Systolic blood 2020-12-16 17:04:00 105 mm[Hg] pressure Diastolic blood 2020-12-16 17:04:00 71 mm[Hg] MD Anali costa pressure Heart rate 2020-12-16 17:04:00 70 /min MD Toney son Body temperature 2020-12-16 17:04:00 36.61 Jessica MD Shahid gunteron Respiratory rate 2020-12-16 17:04:00 18 /min MD Shahid martines Oxygen saturation in 2020-12-16 17:04:00 100 /min MD Thornton Arterial blood by Pulse oximetry Height 2018-03-04 17:29:00 64 [in_us] [facility] Physician s Weight 2018-03-04 17:29:00 141 [lb_av] [facility] Physician s Body Mass Index 2018-03-04 17:29:00 24.2 kg/m2 Unive [facility]ity of [facility] Physician s Procedures Procedure Date / Time Performing Clinician Source Performed EXTERNAL PROVIDER RECORDS 2021-02-24 06:01:00 Doctor Unassigned, [facility] XR CHEST 1 VW PORTABLE 2021-02-18 20:24:28 Benito Urias [facility] DC AN ELECTIVE 2021-02-18 16:30:00 Chris Madrigal spital ENDOTRACHEAL AIRWAY SEPTOPLASTY, NASAL 2021-02-18 16:19:00 [facility] 2021-02-18 14:37:00 Dirk Olguin spital COVID-19 QUALITATIVE 2021-02-15 19:42:00 Dirk Olguin [facility] RT-PCR MRI BRAIN W WO CONTRAST - 2021-01-14 18:32:19 AvbovLien rico MD ABTI POC CREATININE 2021-01-14 15:33:00 EdgardboLien vasquez MD MRI HEAD EXTERNAL STUDY 2020-12-02 23:08:00 Willie Moss [facility] OSI MRI HEAD 2020-12-02 13:39:00 Amanda Pierce MD ENDOSCOPY, UNDER DRUG 2020 12:29:[address] [facility] INDUCED SEDATION COVID-19 QUALITATIVE 2020-11-01 21:15:00 Dirk Olguin [facility] RT-PCR COMPREHENSIVE METABOLIC 2020-09-13 14:37:00 Felisa Arora MD PANEL COMPLETE BLOOD COUNT W/ 2020-09-13 14:37:00 Felisa Arora MD DIFFERENTIAL GLUCOSE LEVEL 2020-09-13 14:37:00 Felisa Arora MD BLOOD UREA NITROGEN 2020-09-13 14:37:00 AbouhFelisa oconnor MD Keshav rson ELECTROLYTE PANEL 2020-09-13 14:37:00 AbouhFelisa oconnor MD on SERUM CREATININE 2020-09-13 14:37:00 AboFelisa oconnor MD n .GLOMERULAR FILTRATION 2020-09-13 14:37:00 AboFelisa oconnor MD nderson RATE CALCIUM LEVEL TOTAL 2020-09-13 14:37:00 AboFelisa oconnor MD Keshav rson ALBUMIN LEVEL 2020-09-13 14:37[facility]00 [facility] ALKALINE PHOSPHATASE 2020-09-13 14:37:00 AbouhFelisa oconnor erson ALANINE AMINOTRANSFERASE 2020-09-13 14:37:00 [facility] ASPARTATE AMINOTRANSFERASE 2020-09-13 14:37:00 AboFelisa oconnor MD TOTAL PROTEIN 2020-09-13 14:37:00 [facility] FRACTIONATED BILIRUBIN 2020-09-13 14:37:00 [facility] nderson Results CBC 2020-09-13 14:37:00 AboFelisa oconnor MD MANUAL DIFFERENTIAL 2020-09-13 14:37:00 [facility] Keshav rson DC ARTHROCENTESIS 2020-09-07 14:05:45 Masood Bearden [facility] ASPIR&/INJ SMALL JT/BURSA W/O US DC ARTHROCENTESIS 2020-09-07 14:05:39 Masood Bearden [facility] ASPIR&/INJ SMALL JT/BURSA W/O US XR HANDS 3 VW BILATERAL 2020-09-07 13:37:[address] [facility] DC ARTHROCENTESIS 2020-05-25 16:10:16 Masood Bearden [facility] ASPIR&/INJ SMALL JT/BURSA W/O US XR SPINE SCOLIOSIS 2-3 2020-05-06 18:28:59 Jeff Coates [facility] VIEWS COMPREHENSIVE METABOLIC 2020-04-01 13:58:00 Felisa Arora MD PANEL COMPLETE BLOOD COUNT W/ 2020-04-01 13:58:00 Felisa Arora MD DIFFERENTIAL MAGNESIUM LEVEL 2020-04-01 13:58:00 Felisa Arora MD PHOSPHORUS LEVEL 2020-04-01 13:58:00 Felisa Arora MD LUTEINIZING HORMONE 2020-04-01 13:58:00 Felisa Arora MD Keshav rson FOLLICLE STIMULATING 2020-04-01 13:58:00 Felisa Arora MD And erson HORMONE LEVEL ESTRADIOL LEVEL 2020-04-01 13:58:00 Felisa Arora MD GLUCOSE LEVEL 2020-04-01 13:58:00 Felisa Arora MD BLOOD UREA NITROGEN 2020-04-01 13:58:00 Felisa Arora MD Keshav rson ELECTROLYTE PANEL 2020-04-01 13:58:00 Felisa Aroraers on SERUM CREATININE 2020-04-01 13:58:00 Felisa Arora MD .GLOMERULAR FILTRATION 2020-04-01 13:58:00 Felisa Aorra MD nderson RATE CALCIUM LEVEL TOTAL 2020-04-01 13:58:00 Felisa Arora MD Keshav rson ALBUMIN LEVEL 2020-04-01 13:58:00 Felisa Arora MD ALKALINE PHOSPHATASE 2020-04-01 13:58:00 Felisa Arora MD And erson ALANINE AMINOTRANSFERASE 2020-04-01 13:58:00 Felisa Arora MD ASPARTATE AMINOTRANSFERASE 2020-04-01 13:58:00 Felisa Arora MD TOTAL PROTEIN 2020-04-01 13:58:00 Felisa Arora MD FRACTIONATED BILIRUBIN 2020-04-01 13:58:00 Felisa Arora MD nderson Results CBC 2020-04-01 13:58:00 Felisa Arora MD MANUAL DIFFERENTIAL 2020-04-01 13:58:00 Felisa Arora MD rson DEXA BONE MINERAL DENSITY 2020-04-01 13:45:00 Felisa Arora BOTH HIPS AND SPINE MRI Spine lumbar wo 2018-03-04 00:00:00 [facility] contrast [address] Spine lumbar wo 2018-03-04 00:00:00 [facility] contrast 19334 Physicians History of Hysterectomy [facility] Physicians History of [facility] History of Chole[facility]ectomy [facility] Physicians History of Bunionectomy [facility] Physicians History of Hip surgery [facility] Physicians History of Lower back [facility] surgery Physicians History of Mastectomy [facility] Physicians History of Breast [facility] reconstruction Physicians History of Bladder surgery [facility] Physicians Plan of Care Planned Activity Planned Date Details Comments Source Future Scheduled 2028-02-[address] [facility] Test 00:00:00 malignant neoplasm Medical C enter of colon (procedure) [code = 364394939] Future Scheduled 2021-03-08 Hepatitis C [facility] Test 14:42:04 screening Hospital (procedure) [code = 613466560] Future Scheduled 2021-03-08 Screening for [facility] Test 14:42:04 malignant neoplasm Hospital of cervix (procedure) [code = 422403335] Future Scheduled 2021-03-08 BREAST CANCER [facility] Test 14:42:04 SCREENING [code = Hospital BREAST CANCER SCREENING] Future Scheduled 2021-03-08 COLONOSCOPY [facility] Test 14:42:04 SCREENING [code = Hospital COLONOSCOPY SCREENING] Future Scheduled 2021-03-08 SHINGLES VACCINES Method ist Test 14:42:04 (#1) [code = Hospital SHINGLES VACCINES (#1)] Future Scheduled 2021-03-08 INFLUENZA VACCINE Method ist Test 14:42:04 [code = INFLUENZA Hospital VACCINE] Future Scheduled 2020-10-[address] [facility] - Test 00:00:00 (#1) [code = Medical Center INFLUENZA VACCINE (#1)] Future Scheduled 2020-03-24 COVID-19 MD Norberto Test 00:00:00 Vaccination (3 - Pfizer risk 4-dose series) [code = COVID-19 Vaccination (3 - Pfizer risk 4-dose series)] Future Scheduled 2020-02-[address] [facility] Test 00:00:00 SCREENING (12+) Medical Cent er [code = DEPRESSION SCREENING (12+)] Future Scheduled 2019-11-[address] [facility] - Test 00:00:00 (1 of 2) [code = Medical [facility] ter SHINGLES VACCINES (1 of 2)] Future Scheduled [address] [facility] - Test 00:00:00 (procedure) [code = [facility] 60190022] Future Scheduled [address] [facility] - Test 00:00:00 malignant neoplasm Medical C enter of cervix (procedure) [code = 382788378] Future Scheduled 1988 DTAP/TDAP/TD [facility] Test 00:00:00 VACCINES (1 - Tdap) [facility] Center [code = DTAP/TDAP/TD VACCINES (1 - Tdap)] Future Scheduled 1987-11-[address] [facility] - Test 00:00:00 SCREENING [code = Medical nter HEPATITIS C SCREENING] Future Scheduled 1974 COVID-[address] [facility] - Test 00:00:00 (1) [code = [facility] COVID-19 VACCINE (1)] Future Scheduled [address] [facility] - Test 00:00:00 malignant neoplasm Medical C enter of breast (procedure) [code = 407647062] Future Scheduled DC MED NUTR THER, Ordered: [facility] of Test 1ST, INDIV, EA 15 09/12/2018 Medicine MIN [code = 05742] Future Scheduled MAMMOGRAM ANNUAL [facility] of Test [code = MAMMOGRAM Medicine ANNUAL] Future Scheduled TETANUS SHOT [facility] ege of Test (ADULT) [code = Medicine TETANUS SHOT (ADULT)] Future Scheduled BMI FOLLOW UP PLAN [facility] of Test [code = BMI FOLLOW Medicine UP PLAN] Future Scheduled HIV SCREENING [code [facility] of Test = HIV SCREENING] Medicine Future Scheduled CERVICAL CANCER [facility] C ollege of Test SCREENING 3 YEAR Medicine FOLLOW UP [code = CERVICAL CANCER SCREENING 3 YEAR FOLLOW UP] Future Scheduled FLU VACCINE > 6 [facility] ollege of Test MONTHS [code = FLU Medicine VACCINE > 6 MONTHS] Encounters Start End Encounter Admission Attending Care Care Encounter Source Date/Time Date/Time Type Type Clinicians Facility Department ID 2021-03-28 2021-03-28 Outpatient R SULTANA [facility] [id number] Univers 15:30:00 15:30:00 ANCA [id number] ity [facility] 2021-03-28 2021-03-28 Outpatient R [facility] [id number] Univers 15:30:00 15:30:00 [facility] 2021-02-28 2021-02-28 Telephone Sultana [facility] 1.2.840.114 [id number] Univers 00:00:00 00:00:00 Anca MULTISPEC 350.1.13.10 ity of [facility] 4.2.7.2.686 [facility] [phone] [facility] AND CIELO [facility] 2021-02-24 2021-02-24 Office Dirk Olguin 1.2.840.1 [id number] 21 [id number] Methodi 14:04:20 16:18:34 Visit Rash[address] 37334.1.[address] 3.430.2.7 Hospit a .3.768748 l .8 2021-02-24 2021-02-24 Travel 1.2.840.1 1.2.228.849 4650 [id number] Methodi 00:00:00 00:00:[address] 3.430.2.7 0.2.7.3.698 Ho spita .3.664675 084.8 l .8 2021-02-24 2021-02-24 Orders Doctor CHARLETTE 1.2.840.114 [id number] Univers 00:00:00 00:00:00 Only Unassigned, SHIRA 350.1.13.10 ity of [place] [facility] 4.2.7.2.686 [facility] [phone] [place] [address] Branch 2021-02-18 2021-02-18 Surgery dahiana Dirk 1.2.840.1 [id number] 21 [id number] Methodi 10:25:00 15:25:[address] 3.430.2.7 Hospit a .3.238367 l .8 2021-02-18 2021-02-18 Anesthesia Bennie, 1.2.840.1 [id number] 21 [id number] Methodi 10:19:00 13:54:00 Event Dillard 19457.1.[address] Camara 3.430.2.7 Hospi ta .3.557617 l .8 2021-02-18 2021-02-18 [facility] 021 82406 19393 [place] 00:00:00 00:00:00 Encounter [address] 2021-02-18 2021-02-18 Telephone Tyrese, 1.2.840.1 [id number] 21 [id number] Methodi 00:00:00 00:00:[address] 3.430.2.7 Hospit a .3.665490 l .8 2021-02-18 2021-02-18 Travel 1.2.840.1 1.2.509.674 1392 [id number] Methodi 00:00:00 00:00:[address] 3.430.2.7 0.2.7.3.698 Ho spita .3.234666 084.8 l .8 2021-02-17 2021-02-17 Telephone Jamil, 1.2.840.1 [id number] Methodi 00:00:00 00:00:[address] 3.430.2.7 Hospit a .3.577889 l .8 2021-02-17 2021-02-17 Telephone dahiana Dirk 1.2.840.1 [id number] Methodi 00:00:00 00:00:[address] 3.430.2.7 Hospit a .3.094495 l .8 2021-02-15 2021-02-15 Lab Dirk Olguin 1.2.840.1 [id number] 21 [id number] Methodi 13:30:35 13:45:[address] 3.430.2.7 Hospit a .3.729878 l .8 2021-02-15 2021-02-15 Travel 1.2.840.1 1.2.813.028 6030 618911 Methodi 00:00:00 00:00:[address] 3.430.2.7 0.2.7.3.698 Ho spita .3.384516 084.8 l .8 2021-01-14 2021-01-14 Outpatient HENRI CARLIN [facility] [id number] 08:53:55 08:53:55 LIEN short 2021-01-14 2021-01-14 [facility], 1.2.840.1 [id number] Methodi 00:00:00 00:00:[address]1.[address] 3.430.2.7 Hospit a .3.631434 l .8 2021-01-13 2021-01-13 [facility], 1.2.840.1 [id number] 2100 [id number] Methodi 13:32:06 23:59:00 Encounter Willie G. 30309.1.[address] 3.430.2.7 Hospit a .3.967178 l .8 2021-01-13 2021-01-13 [facility], 1.2.840.1 [id number] Methodi 11:38:54 13:07:03 Visit Willie G. 47147.1.[address] 3.430.2.7 Hospit a .3.741740 l .8 2021-01-13 2021-01-13 [facility], 1.2.840.1 [id number] 66180 Methodi 00:00:00 00:00:00 Only Willie G. 62272.1.[address] 3.430.2.7 Hospit a .3.891543 l .8 2021-01-13 2021-01-13 Travel 1.2.840.1 1.2.895.186 4081 116921 Methodi 00:00:00 00:00:[address] 3.430.2.7 0.2.7.3.698 Ho spita .3.181870 084.8 l .8 2021-01-12 2021-01-12 Orders Kalia, 1.2.840.1 [id number] 2099 [id number] Methodi 00:00:00 00:00:00 Only Durga 36581.1.[address] 3.430.2.7 Hospit a .3.274112 l .8 2021-01-10 2021-01-10 Mercedez Cash 1.2.840.1 [id number] Methodi 00:00:00 00:00:[address] 3.430.2.7 Hospit a .3.080040 l .8 2020-12-24 2020-12-24 Oncology Mcwilliams, 1.2.840.1 [id number] 2099 [id number] Methodi 00:00:00 00:00:00 Survivorsh Chris 24820.1.1 614 s t ip 3.430.2.7 Hospit a .3.747415 l .8 2020-12-24 2020-12-24 Travel 1.2.840.1 1.2.812.947 5075 688241 Methodi 00:00:00 00:00:[address] 3.430.2.7 0.2.7.3.698 Ho spita .3.250406 084.8 l .8 2020-12-24 2020-12-24 Oncology Mcwilliams, 1.2.840.1 [id number] 2099 [id number] Methodi 00:00:00 00:00:00 Survivorsh Chris 02050.1.1 335 s t ip 3.430.2.7 Hospit a .3.390902 l .8 2020-12-22 2020-12-22 Travel 1.2.840.1 1.2.921.955 3179 [id number] Methodi 00:00:00 00:00:[address] 3.430.2.7 0.2.7.3.698 Ho spita .3.576505 084.8 l .8 2020-12-16 2020-12-16 Outpatient HENRI JESSMARLO MDA [id number] 11:02:21 12:29:24 GURPREET short 2020-12-08 2020-12-08 Outpatient HENRI STANMARLO MDA [id number] 17:59:08 17:59:08 AMANDA short 2020-12-08 2020-12-08 Outpatient HENRI LUEVANO MDA MDA [id number] 16:12:11 16:12:11 KAREN short 2020-11-18 2020-11-18 Telephone Dirk Olguin 1.2.840.1 [id number] Methodi 00:00:00 00:00:[address] 3.430.2.7 Hospit a .3.069920 l .8 2020-11-08 2020-11-08 [facility] 1.2.840.1 [id number] Methodi 07:55:43 08:24:[address] 3.430.2.7 Hospit a .3.359143 l .[address] [facility] 1.2.840.1 [id number] 2 [id number] Methodi 05:49:00 08:32:[address] 29730.1.[address] 3.430.2.7 Hospit a .3.456394 l .8 2020 2020 Surgery Dirk Olguin 1.2.840.1 [id number] 21 [id number] Methodi 07:30:00 08:20:[address] 3.430.2.7 Hospit a .3.774488 l .8 2020 2020 Anesthesia Tai, 1.2.840.1 [id number] Methodi 07:29:00 07:58:00 Event Justyna 33276.1.[address] Alan 3.430.2.7 Hospit a .3.671975 l .8 2020 2020 Travel 1.2.840.1 1.2.763.889 6155 [id number] Methodi 00:00:00 00:00:[address] 3.430.2.7 0.2.7.3.698 Ho spita .3.571514 084.8 l .8 2020-11-04 2020-11-04 Telephone Kalia, 1.2.840.1 [id number] Methodi 00:00:00 00:00:[address] 3.430.2.7 Hospit a .3.552709 l .8 2020-11-01 2020-11-01 Lab Dirk Olguin 1.2.840.1 [id number] Methodi 15:51:20 15:56:[address] 3.430.2.7 Hospit a .3.962605 l .8 2020-11-01 2020-11-01 Travel 1.2.840.1 1.2.653.468 2975 [id number] Methodi 00:00:00 00:00:[address] 3.430.2.7 0.2.7.3.698 Ho spita .3.937615 084.8 l .8 2020-10-21 2020-10-21 Telephone Dirk Olguin 1.2.840.1 [id number] Methodi 00:00:00 00:00:[address] 3.430.2.7 Hospit a .3.819947 l .8 2020-10-04 2020-10-04 Letter CHARLETTE Beckwith 1.2.840.114 [id number] Univers 00:00:00 00:00:00 (Out) Stvee SILVA 350.1.13.10 ity of [facility] 4.2.7.2.686 Sebastian as [id number] [address] 2020-10-03 2020-10-03 Laboratory Only, Ang Db Test CAMB 1.2.8 40.114 [id number] Univers 17:37:40 17:52:40 Only Unknown, [facility] 350.1.13.10 ity of [place] 4.2.7.2.686 Sebastian as Pravin?Blea [phone] [address] Medical Office [facility] 2020-10-03 2020-10-03 Outpatient R [facility] [id number] -[id number] Univers 17:40:00 17:40:00 [id number] ity [facility] 2020-10-03 2020-10-03 Outpatient R UNKNOWN, [facility] [id number] Univers 17:40:00 17:40:00 ATTENDING ity [facility] 2020-09-28 2020-09-28 Laboratory Only, Ang Db Test [facility] 1.2.8 40.114 [id number] Univers 19:18:19 19:33:19 Only Antionette [facility] 350.1.13.10 ity of [place] 4.2.7.2.686 Sebastian as Pravin?Blea [phone] [address] Medical Office Building 2020-09-28 2020-09-28 Outpatient R [facility] [id number] -20 Univers 19:20:00 19:20:00 [id number] [facility] 2020-09-28 2020-09-28 Outpatient R ANTIONETTE, [facility] [id number] Univers 19:20:00 19:20:00 VALERIE desire o f [facility] 2020-09-17 2020-09-17 Telephone Dirk Olguin 1.2.840.1 [id number] Methodi 00:00:00 00:00:[address] 3.430.2.7 Hospit a .3.870623 l .8 2020-09-17 2020-09-17 Telephone Dirk Olguin 1.2.840.1 [id number] Methodi 00:00:00 00:00:[address] 3.430.2.7 Hospit a .3.613551 l .8 2020-09-14 2020-09-14 Office Dirk Olguin 1.2.840.1 [id number] 21 [id number] Methodi 15:18:01 16:59:14 Visit Yuriy 63734.1.[address] 3.430.2.7 Hospit a .3.279008 l .8 2020-09-14 2020-09-14 Orders Kalia, 1.2.840.1 [id number] 2099 [id number] Methodi 00:00:00 00:00:00 Only Anedra 07215.1.[address] 3.430.2.7 Hospit a .3.146171 l .8 2020-09-14 2020-09-14 Travel 1.2.840.1 1.2.281.481 3837 [id number] Methodi 00:00:00 00:00:[address] 3.430.2.7 0.2.7.3.698 spita .3.706659 084.8 l .8 2020-09-13 2020-09-13 Outpatient EL RAQUEL, MDA MDA [id number] 09:38:49 10:34:49 FELISA short 2020-09-13 2020-09-13 Outpatient EL RAQUEL, MDA MDA [id number] 09:11:26 09:32:39 FELISA short 2020-09-07 2020-09-07 Office Suleiman 1.2.840.1 [id number] Methodi 08:25:53 09:05:27 Visit Masood D. 86039.1.[address] 3.430.2.7 Hospit a .3.300740 l .8 2020-08-03 2020-08-03 Travel 1.2.840.1 1.2.485.853 1141 [id number] Methodi 00:00:00 00:00:[address] 3.430.2.7 0.2.7.3.698 Ho spita .3.083747 084.8 l .8 2020-05-25 2020-05-25 Office Suleiman, 1.2.840.1 [id number] 89101 Methodi 09:57:44 11:06:59 Visit Masood Sandoval 06051.1.[address] 3.430.2.7 Hospit a .3.674466 l .8 2020-05-06 2020-05-06 Office Jaxon, 1.2.840.1 [id number] 4054 Methodi 13:04:13 13:54:35 Visit Jeff Gustafson 19222.1.1 494 s t 3.430.2.7 Hospit a .3.102181 l .8 2020-05-06 2020-05-06 Travel 1.2.840.1 1.2.990.454 6236 [id number] Methodi 00:00:00 00:00:[address] 3.430.2.7 0.2.7.3.698 Ho spita .3.130532 084.8 l .8 2020-04-01 2020-04-01 Outpatient EL ABOUHARB, MDA MDA [id number] 07:44:42 07:54:06 FELISA short 2020-04-01 2020-04-01 Outpatient EL ABOUHARB, MDA MDA [id number] 07:11:45 07:11:45 FELISA short 2020-03-24 2020-03-24 Outpatient EL ABOARB, MDA MDA [id number] 08:14:10 08:41:49 FELISA short 2020-03-15 2020-03-15 Travel 1.2.840.1 1.2.821.426 8088 [id number] Methodi 00:00:00 00:00:[address] 3.430.2.7 0.2.7.3.698 Ho spita .3.264264 084.8 l .8 2020-02-25 2020-02-25 Outpatient R GEMA, [facility] [id number]-20 Univers 13:20:00 13:20:00 TANNER [id number] [facility] 2020-02-25 2020-02-25 [facility] [id number] Univers 13:20:00 13:20:00 TANNER [facility] 2020-02-18 2020-02-18 Outpatient CRISTINA, [facility] [id number]-20 Univers 14:10:00 14:10:00 CHARLETTE [id number] [facility] 2020-02-04 2020-02-04 Outpatient [facility] [id number] Univers 15:00:00 15:00:00 [id number] [facility] 2020-02-04 2020-02-04 [facility] [id number] Univers 15:00:00 15:00:00 TANNER [facility] 2020-02-03 2020-02-03 Outpatient R [facility] [id number] Univers 14:20:00 14:20:00 [id number] [facility] 2020-02-03 2020-02-03 [facility] [id number] Univers 14:20:00 14:20:00 TANNER [facility] 2019-08-26 2019-08-26 Outpatient HENRI ARORA, [facility] [id number] 00:00:00 00:00:00 FELISA short 2019-06-11 2019-06-11 Outpatient Bhargav GARNER [facility] [id number] Univers 08:30:00 08:30:00 FAVIOLA [facility] 2019-06-11 2019-06-11 Laboratory Only, [facility] 1.2.840.114 [id number] 08:17:05 08:26:36 Only Test [place] 350.1.13.10 [place] 4.2.7.2.686 [phone] [address] 2019-06-11 2019-06-11 Outpatient R [facility] [id number] -[id number] Univers 08:00:00 08:00:00 [facility] 2019-06-11 2019-06-11 Telephone CHARLETTE Garner 1.2.642.127 [id number] 00:00:00 00:00:00 Faviola SILVA 350.1.13.10 [facility] 4.2.7.2.686 [id number] 2019-06-10 2019-06-10 Outpatient R [facility] [id number] -[id number] Univers 13:45:00 13:45:00 [facility] 2019-06-10 2019-06-10 Outpatient R [facility] [id number] Univers 13:45:00 13:45:00 [facility] 2018-09-11 2018-09-11 Office ZANE Townsend [id number] 10:39:49 14:09:37 Visit Nisreen AMBULATOR 350.1.13.21 Y [id number] [id number] [facility] 2018-09-11 2018-09-11 Office ZANE Townsend [id number] [facility] 10:39:49 14:09:37 Visit Nisreen AMBULATOR 350.1.13.21 College Y [id number] [facility] 325 e 2018-03-04 2018-03-04 Appointmen POONAM AGARWAL UTP [id number] [facility] 15:30:00 15:30:00 t; ORIANA, Orthopedic i ty of Jadyn AGARWAL [facility] [place] Kalia GASTELUM M.D. Trace 2 POD ans 2 2016-08-16 2016-08-16 Appointmen POONAM GOLDSMITH UTP [id number] Univers 15:15:00 15:15:00 t; MAYANK GOLDSMITH M.D. ity caroline TALLEY M.D. [place] [facility] 2016-07-12 2016-07-12 Appointmen POONAM GOLDSMITH UTP [id number] Univers 13:00:00 13:00:00 t; MAAYNK GOLDSMITH M.D. ity of [place], M.D. [place] [facility] Results Test Description Test Time Test Comments Results Result Comments Source COVID-19 qualitative RT-PCR 2021-02-16 01:44:19 Test Item Value Reference Range Interpretation Comme nts Interpretation (test code = Negative results do not 6953720) preclude 2019-nCoV infection and should not be used as the sole basis for treatment or other patient management decisions. Negative results must be combined with clinical observations, patient history, and epidemiological information. COVID-19 qualitative RT-PCR Not-Detected Not-Detected result (test code = 14700-3) COVID-19 qualitative RT-PCR See link below for PDF Lab Case Number: (test code = 7070) Report [id number] [facility] [id number] 15:35:13 Test Item Value Reference Range Interpretation Comments POC Crea (test 0.9 mg/dL 0.6-1.3 Medications, code = 07700-3) especially hydroxyurea or supplements, crawley ch as ascorbate, can interfere with test results causing a falsely and significantly h igher result than exp ected. If a problem is suspected with a patient's resul t, a sample should b e sent to the laborato for confirmatory te sting. Method descript ion: The i-STAT is a n analyzer used f or in vitro quantific ation of various anal ytes in whole blood. The device uses a s gemma disposable cart ridge which contains microfabricated sensors, a calibration tai [employer], fluidics system , and a waste chamber . Each test cartridge contains chemic ally sensitive biose nsors on a Appro[employer] ip that are config ured to perform spec ific tests. The microfabricated sensors measure analyte concent ration by an electroch emical assay. POC eGFR-AA (test 86 See_Comment Normal eGF R >= 60 code = 31870-9) mL/min/1.73 m2 The eGFR is calcula joseluis using the CKD-E PI equation. The e GFR declines with a ge. eGFR <60 mL/min /1.73 m2 is considere d as "decreased" Thi s equation should only be used for pat ients 18 and older. According to th e [employer] Kid[employer]'s Ki dney Disease Outcome Quality Initiat ronal (KDOQI) classification and 2012 Kidney Dis ease Improving Globa l Outcomes (KDIGO ) Clinical Practi ce Guideline, the stage of CKD should b e categorized bas ed on estimated GFR. Stage Description GFR mL/min/1.73 m21 Kidney damage w ith normal or high GFR >=902 Kidney d amage with mild decre ase in GFR 60-893a Mild to moderate dec rease in GFR 45-5 93b Moderate to sev ere decrease in GFR 30-444 Severe decrease in GFR 15-295 Kidney f ailure <15 (or juliocesar lysis) [Automated Anchanto] The system [employer] generated this result transmitted ref erence range: >=60 mL/min/1.73 m2. The reference range was not used to int erpret this result as normal/abnormal . POC eGFR-BRUCE 74 See_Comment Normal eGFR >= 60 (test code = mL/min/1.73 m2 The 03707-6) eGFR is calcula joseluis using the CKD-E PI equation. The e GFR declines with a ge. eGFR <60 mL/min /1.73 m2 is considere d as "decreased" Thi s equation should only be used for pat ients 18 and older. According to th e National Kidney Foundation's Ki dney Disease Outcome Quality Initiat ronal (KDOQI) classification and 2012 Kidney Dis ease Improving Globa l Outcomes (KDIGO ) Clinical Practi ce Guideline, the stage of CKD should b e categorized bas ed on estimated GFR. Stage Description GFR mL/min/1.73 m21 Kidney damage w ith normal or high GFR >=902 Kidney d amage with mild decre ase in GFR 60-893a Mild to moderate dec rease in GFR 45-5 93b Moderate to sev ere decrease in GFR 30-444 Severe decrease in GFR 15-295 Kidney f ailure <15 (or juliocesar lysis) [Automated Anchanto] The system [employer] generated this result transmitted ref erence range: >=60 mL/min/1.73 m2. The reference range was not used to int erpret this result as normal/abnormal . POC Clean Dev Yes (test code = 6672) Performing Lab [facility] (test code = [place] [address]) [facility] [address] [facility], [place], [place] [address]; Point of Care L ab Director: MD MD Norberto Henry
[2021-03-22] MEDS ORDERED: IBUPROFEN 200 MG TAB PO ONE (20:32)
--- NOTE | 2021-03-22 20:48 | EDPHYS ---
Physician Documentation [facility] Name: Mary Jo Mcnally Age: 50 yrs Sex: Female : 1970 Arrival Date: 03/22/2021 Time: 19:57 Bed 16 Private MD: ED Physician Yefri Thornton HPI: 03/22 20:29 This 50 yrs old Female presents to ER via Ambulatory with complaints of Hand ryne Injury. 20:29 The patient or guardian reports a contusion, decreased range of motion, deformity, ryne injury, pain. The complaints affect the right hand diffusely. Context: The problem was sustained on a street or driveway. Onset: The symptoms/episode began/occurred just prior to arrival. Modifying factors: The symptoms are alleviated by elevation, holding still, ice/coldpack to affected area, the symptoms are aggravated by movement, dependent position. Associated signs and symptoms: The patient has no apparent associated signs or symptoms. Severity of symptoms: At their worst the symptoms were mild, in the emergency department the symptoms are unchanged. The patient has not experienced similar symptoms in the past. 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 N/A - Hysterectomy tw5 Historical: - Allergies: 20:06 Sulfa (Sulfonamide Antibiotics); tw5 - Home Meds: 20:06 Abilify 5 mg Oral tab 1 tab once daily [Active]; baclofen 5 mg oral tab [Active]; tw5 Colace 100 mg Oral cap every 6 hours [Active]; Prilosec 30 mg Oral cpDR 1 cap 2 times per day [Active]; diclofenac sodium 25 mg oral TbEC 1 tab [Active]; Nucynta ER 50 mg Oral Tb12 1 tab [Active]; Senokot S 3 TABS Oral daily [Active]; TIMOXIFEN 20 MG nightly [Active]; Cymbalta 60 mg oral cpDR 1 cap once daily [Active]; hydromorphone 2 mg Oral tab 1 tab 8 hours [Active]; wegoby 2.4 mg [Active]; - PMHx: 20:06 CANCER - BREAST; constipation; Depression; GERD; tw5 - Immunization history:: Flu vaccine is up to date. - Social history:: Smoking status: Patient denies any tobacco usage or history of. - Family history:: not pertinent. ROS: 20:29 Constitutional: Negative for fever, chills, and weight loss, Eyes: Negative for injury, ryne pain, redness, and discharge, ENT: Negative for injury, pain, and discharge, Neck: Negative for injury, pain, and swelling, Cardiovascular: Negative for chest pain, palpitations, and edema, Respiratory: Negative for shortness of breath, cough, wheezing, and pleuritic chest pain, Abdomen/GI: Negative for abdominal pain, nausea, vomiting, diarrhea, and constipation, Back: Negative for injury and pain, : Negative for injury, bleeding, discharge, and swelling, Skin: Negative for injury, rash, and discoloration, Neuro: Negative for headache, weakness, numbness, tingling, and seizure, Psych: Negative for depression, anxiety, suicide ideation, homicidal ideation, and hallucinations, Allergy/Immunology: Negative for hives, rash, and allergies, Endocrine: Negative for neck swelling, polydipsia, polyuria, polyphagia, and marked weight changes, Hematologic/Lymphatic: Negative for swollen nodes, abnormal bleeding, and unusual bruising. 20:29 MS/extremity: Positive for injury or acute deformity, decreased range of motion, deformity, erythema, pain, of the dorsum of right hand. Exam: 20:29 Constitutional: This is a well developed, well nourished patient who is awake, alert, ryne and in no acute distress. Head/Face: Normocephalic, atraumatic. Eyes: Pupils equal round and reactive to light, extra-ocular motions intact. Lids and lashes normal. Conjunctiva and sclera are non-icteric and not injected. Cornea within normal limits. Periorbital areas with no swelling, redness, or edema. ENT: Nares patent. No nasal discharge, no septal abnormalities noted. Tympanic membranes are normal and external auditory canals are clear. Oropharynx with no redness, swelling, or masses, exudates, or evidence of obstruction, uvula midline. Mucous membranes moist. Neck: Trachea midline, no thyromegaly or masses palpated, and no cervical lymphadenopathy. Supple, full range of motion without nuchal rigidity, or vertebral point tenderness. No Meningismus. Chest/axilla: Normal chest wall appearance and motion. Nontender with no deformity. No lesions are appreciated. Cardiovascular: Regular rate and rhythm with a normal S1 and S2. No gallops, murmurs, or rubs. Normal PMI, no JVD. No pulse deficits. Respiratory: Lungs have equal breath sounds bilaterally, clear to auscultation and percussion. No rales, rhonchi or wheezes noted. No increased work of breathing, no retractions or nasal flaring. Abdomen/GI: Soft, non-tender, with normal bowel sounds. No distension or tympany. No guarding or rebound. No evidence of tenderness throughout. Back: No spinal tenderness. No costovertebral tenderness. Full range of motion. Skin: Warm, dry with normal turgor. Normal color with no rashes, no lesions, and no evidence of cellulitis. Neuro: Awake and alert, GCS 15, oriented to person, place, time, and situation. Cranial nerves II-XII grossly intact. Motor strength 5/5 in all extremities. Sensory grossly intact. Cerebellar exam normal. Normal gait. 20:29 Musculoskeletal/extremity: ROM: intact in all extremities, limited active range of motion due to pain, limited passive range of motion due to pain, Circulation is intact in all extremities. Sensation intact. Compartment Syndrome exam of affected extremity: Joints: All joints are normal except Vital Signs: 20:02 BP 106 / 59; Pulse 61; Resp 14; Temp 97.9(O); Pulse Ox 100% on R/A; Weight 64.86 kg; tw5 Height 5 ft. 3 in. (160.02 cm); Pain 5/10; 20:25 BP 107 / 68; Pulse 62; Resp 16; Temp 98.2; Pulse Ox 99% on R/A; Pain 0/10; trisha 20:02 Body Mass Index 25.33 (64.86 kg, 160.02 cm) tw5 MDM: 20:13 Patient medically screened. ryne 20:39 Differential diagnosis: dislocation, closed fracture, contusion, abrasion, tendonitis. ryne Data reviewed: vital signs, nurses notes, radiologic studies, plain films. Data interpreted: ekg monitor tech: not applicable for this patient encounter. rate is 62 beats/min, rhythm is regular, Pulse oximetry: on room air is 99 %. Test interpretation: by ED physician or midlevel provider: plain radiologic studies. Counseling: I had a detailed discussion with the patient and/or guardian regarding: the historical points, exam findings, and any diagnostic results supporting the discharge/admit diagnosis, radiology results, the need for outpatient follow up, for definitive care, a family practitioner, a orthopedic surgeon. 03/22 20:22 Order name: Hand Right 3 View XRAY [facility] 03/22 20:22 Order name: Ice pack; Complete Time: 20:30 [facility] 03/22 20:22 Order name: Wound Care; Complete Time: 20:35 [facility] 03/22 20:46 Order name: Splint: hand volar ryne Administered Medications: 20:35 Drug: Motrin (ibuprofen) 600 mg Route: PO; trisha 20:35 Drug: Neosporin (fwixyfxg-eywjkgxqmb-bxdlkdgmf) Ointment 1 application Route: Topical; trisha Site: right hand; Disposition Summary: 03/22/21 20:47 Discharge Ordered Location: Home ryne Problem: new ryne Symptoms: have improved ryne Condition: Stable ryne Diagnosis - Contusion of right hand ryne Followup: ryne - With: Private Physician - When: 2 - 3 days - Reason: Recheck today's complaints, Continuance of care, Re-evaluation by your physician Followup: ryne - With: Trung Merlos MD - When: 2 - 3 days - Reason: Recheck today's complaints, Re-evaluation by your physician Discharge Instructions: - Discharge Summary Sheet ryne - Contusion ryne - Hand Contusion ryne - Hand Contusion, Jfsl-[id number] ryne - Contusion, [id number]-[id number] ryne Forms: - Medication Reconciliation Form ryne - Thank You Letter ryne - Antibiotic Education ryne - Prescription Opioid Use ryne Prescriptions: - Ibuprofen 600 mg Oral Tablet - take 1 tablet by ORAL route every 6 hours As needed take with food; 20 tablet; ryne Refills: 0, Product Selection Permitted - Tylenol-Codeine #3 300 mg-30 mg Oral - take 2 tablet by ORAL route every 6 hours; 20 tablet; Refills: 0, Product ryne Selection Permitted Signatures: Dispatcher [employer] Yefri Flores MD MD cha Wood, Tiffany tw5 Amanda Huang RN RN trisha Corrections: (The following items were deleted from the chart) 20:11 20:06 Allergies: Morphine; tw5 tw5
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
[2021-03-22 22:34] VITALS: BP 107/68; TEMP 98.2; O2SAT 99
--- NOTE | 2021-03-23 07:49 | RAD REPORT ---
EXAM DESCRIPTION: RAD - Hand Right 3 View - 03/22/2021 8:44 pm CLINICAL HISTORY: Right hand pain status post injury FINDINGS: No fracture or dislocation is seen.
== END 2021-03-22 20:54 | disposition home or self-care (01) ==
LOC: ER 19:54
DX: S60.221A Contusion of right hand, initial encounter (principal); V40.0XXA Car driver injured in collision with pedestrian or animal in nontraffic accident, initial encounter; K21.9 Gastro-esophageal reflux disease without esophagitis; Z88.2 Allergy status to sulfonamides; Z85.3 Personal history of malignant neoplasm of breast
CPT/HCPCS: 99283